=== PATIENT | male | born 1970 | race American Indian/Alaskan Native ===

== ENCOUNTER 2017-07-22 23:39 | Emergency (ER) | payer MEDICAID, OTHER ==
[2017-07-22] MEDS ORDERED: Albuterol 6.7 GM Inhaler INH ONE (23:40)
[2017-07-22 23:48] VITALS: BP 127/81
[2017-07-23] MEDS ORDERED: predniSONE 20 MG Tab PO ONE (00:32)
[2017-07-23] MEDS ORDERED: Albuterol 0.083% 2.5 MG/3 ML Neb Soln NEB ONE (00:33)
[2017-07-23] MEDS ORDERED: Albuterol 6.7 GM Inhaler INH ONE (01:09)
--- NOTE | 2017-07-23 01:17 | EDM.PDOC ---
ED HPI GENERAL MEDICAL PROBLEM - General Chief Complaint: Respiratory Problem Stated Complaint: TROUBLE BREATHING Time Seen by Provider: 07/23/17 00:15 Source of Information: Reports: Patient History Limitations: Reports: No Limitations - History of Present Illness INITIAL COMMENTS - FREE TEXT/NARRATIVE: C/o cough and chest tightness for 2 weeks after attending [employer] and in dust. Cough productive at times green phlegm. No fever or chills. Smoker Associated Symptoms: Reports: Cough, Other (wheezing) Treatments INSOLE ROUNDER: Reports: Other Medication(s) - Related Data Allergies Allergy/AdvReac Type Severity Reaction Status Date / Time No Known Allergies Allergy Verified 12/09/16 16:52 Home Meds: Home Meds Aspirin [Aspirin EC] 81 mg PO DAILY 10/23/16 [History] PHENobarbital [PHENobarbital] 64.8 mg PO DAILY 10/23/16 [History] Phenytoin Sodium Extended [Dilantin] 100 mg PO DAILY 10/23/16 [History] Lisinopril [Lisinopril] 10 mg PO DAILY 12/09/16 [History] Past Medical History - Past Health History Medical/Surgical History: Denies Medical/Surgical History Cardiovascular History: Reports: Hypertension Musculoskeletal History: Reports: Back Pain, Chronic Neurological History: Reports: Seizure Social & Family History - Family History Family Medical History: Noncontributory - Tobacco Use Smoking Status *Q: Current Every Day Smoker Years of Tobacco use: 31 Packs/Tins Daily: 0.5 Used Tobacco, but Quit: No Second Hand Smoke Exposure: Yes - Caffeine Use Caffeine Use: Reports: Coffee - Recreational Drug Use Recreational Drug Use: No - Living Situation & Occupation Living situation: Reports: , with Family ED ROS GENERAL - Review of Systems Review Of Systems: ROS reveals no pertinent complaints other than HPI. ED EXAM, GENERAL - Physical Exam Exam: See Below Exam Limited By: No Limitations General Appearance: Alert, No Apparent Distress Eye Exam: Bilateral Eye: EOMI Ears: Normal External Exam, Normal TMs Nose: Normal Inspection Throat/Mouth: Normal Inspection Head: Atraumatic, Normocephalic Neck: Normal Inspection, Full Range of Motion. No: Lymphadenopathy (L), Lymphadenopathy (R) Respiratory/Chest: No Respiratory Distress, Wheezing (bilateral) Cardiovascular: Normal Peripheral Pulses, Regular Rate, Rhythm Extremities: Normal Inspection, Normal Range of Motion Neurological: Alert, Oriented, Normal Cognition Psychiatric: Normal Affect, Normal Mood Skin Exam: Warm, Dry, Intact, Normal Color Course - Vital Signs Last Recorded V/S: Last Vital Signs Temp 97.6 F 07/22/17 23:47 Pulse 79 07/22/17 23:47 Resp 20 07/22/17 23:47 BP 127/81 07/22/17 23:47 Pulse Ox 96 07/22/17 23:47 - Orders/Labs/Meds Orders: Active Orders 24 hr Category Date Time Status RT Aerosol Therapy [RC] ASDIRECTED Care 07/23/17 00:33 Active Meds: Medications Discontinued Medications Generic Name Dose Route Start Last Admin Trade Name Freq PRN Reason Stop Dose Admin Albuterol 2.5 mg 07/23/17 00:33 07/23/17 00:38 Proventil Neb Soln NEB 07/23/17 00:34 2.5 mg ONETIME ONE Administration Albuterol Confirm 07/23/17 01:09 Proventil Hfa Administered 07/23/17 01:10 Dose 6.7 gm INH .STK-MED ONE Prednisone 20 mg 07/23/17 00:32 07/23/17 00:38 Prednisone PO 07/23/17 00:33 20 mg ONETIME ONE Administration - Radiology Interpretation Free Text/Narrative:: CXR clear - Re-Assessments/Exams Free Text/Narrative Re-Assessment/Exam: 07/23/17 01:21 Lungs clear following albuterol nebulizer. Departure - Departure Time of Disposition: 01:06 Disposition: Home, Self-Care 01 Condition: Good Clinical Impression: Upper respiratory infection Qualifiers: URI type: unspecified viral URI Qualified Code(s): J06.9 - Acute upper respiratory infection, unspecified Reactive airway disease Qualifiers: Asthma severity: unspecified severity Asthma complication type: uncomplicated Qualified Code(s): J45.909 - Unspecified asthma, uncomplicated - Discharge Information Instructions: Upper Respiratory Infection, Adult, [id number] Forms: ED Department Discharge Additional Instructions: prednisone 20mg daily for 3 days then 10mg daily for 3 days albuterol inhaler 2 puffs every 4 hours as needed for cough and wheezing follow up as needed - My Orders Last 24 Hours: My Active Orders 07/23/17 00:33 RT Aerosol Therapy [RC] ASDIRECTED - Assessment/Plan Last 24 Hours: My Active Orders 07/23/17 00:33 RT Aerosol Therapy [RC] ASDIRECTED
== END 2017-07-23 01:18 | disposition home or self-care (01) ==
LOC: DL.ED 23:39
DX: J06.9 Acute upper respiratory infection, unspecified (principal); J45.909 Unspecified asthma, uncomplicated; F17.210 Nicotine dependence, cigarettes, uncomplicated; I10 Essential (primary) hypertension; Z79.82 Long term (current) use of aspirin; Z79.899 Other long term (current) drug therapy
CPT/HCPCS: 71020; 94640; 99283; A9270; J7620

== ENCOUNTER 2018-11-11 11:05 | Emergency (ER) | payer OTHER ==
--- NOTE | 2018-11-11 11:10 | EDM.PDOC ---
ED HPI GENERAL MEDICAL PROBLEM - General Chief Complaint: Respiratory Problem Stated Complaint: COUGHING UP BLOOD [id number] Time Seen by Provider: 11/11/18 11:09 Source of Information: Reports: Patient, RN, RN Notes Reviewed History Limitations: Reports: No Limitations - History of Present Illness INITIAL COMMENTS - FREE TEXT/NARRATIVE: Pt presents to ER from home by POV with c/o 3 days of recurring hemoptysis. Pt admits to some aching pain in the chest. Denies cough, wheezing, shortness of breath, epistaxis, sore throat, night sweats, abdominal pain, N/V, bloody, black , or melanotic stools, or unexplained wt loss. Pt state that a few times an hour he simply coughs up some darkish blood with small clots. Duration: Day(s): (3), Intermittent, Recurring Location: Reports: Chest Quality: Reports: Ache Severity: Moderate Improves with: Reports: None Worsens with: Reports: None Associated Symptoms: Reports: No Other Symptoms - Related Data Allergies Allergy/AdvReac Type Severity Reaction Status Date / Time No Known Allergies Allergy Verified 11/11/18 11:17 Home Meds: Home Meds Aspirin [Aspirin EC] 81 mg PO DAILY 10/23/16 [History] PHENobarbital 64.8 mg PO DAILY 10/23/16 [History] Phenytoin Sodium Extended [Dilantin] 100 mg PO DAILY 10/23/16 [History] Lisinopril 10 mg PO DAILY 12/09/16 [History] Past Medical History - Past Health History Medical/Surgical History: Denies Medical/Surgical History HEENT History: Reports: None Cardiovascular History: Reports: Hypertension Respiratory History: Reports: None Gastrointestinal History: Reports: None Genitourinary History: Reports: None Musculoskeletal History: Reports: Back Pain, Chronic Neurological History: Reports: Seizure Psychiatric History: Reports: None Endocrine/Metabolic History: Reports: None Hematologic History: Reports: None Immunologic History: Reports: None Oncologic (Cancer) History: Reports: None Dermatologic History: Reports: None - Past Surgical History Head Surgeries/Procedures: Reports: None Social & Family History - Family History Family Medical History: Noncontributory - Tobacco Use Smoking Status *Q: Current Every Day Smoker Tobacco Use Within Last Twelve Months: Cigarettes Years of Tobacco use: 32 - Caffeine Use Caffeine Use: Reports: Coffee, Soda - Living Situation & Occupation Living situation: Reports: , with Family ED ROS GENERAL - Review of Systems Review Of Systems: ROS reveals no pertinent complaints other than HPI. ED EXAM, GENERAL - Physical Exam Exam: See Below Exam Limited By: No Limitations General Appearance: Alert, WD/WN, No Apparent Distress Eye Exam: Bilateral Eye: Normal Inspection Ears: Normal External Exam, Hearing Grossly Normal Nose: Normal Inspection, Normal Mucosa, No Blood Throat/Mouth: Normal Inspection, Normal Lips, Normal Teeth, Normal Gums, Normal Oropharynx, Normal Voice, No Airway Compromise Head: Atraumatic, Normocephalic Neck: Normal Inspection, Supple, Non-Tender, Full Range of Motion. No: Lymphadenopathy (L), Lymphadenopathy (R) Respiratory/Chest: No Respiratory Distress, Lungs Clear, Normal Breath Sounds, No Accessory Muscle Use, Chest Non-Tender Cardiovascular: Normal Peripheral Pulses, Regular Rate, Rhythm, No Edema, No Gallop, No JVD, No Murmur, No Rub GI/Abdominal: Normal Bowel Sounds, Soft, Non-Tender, No Organomegaly, No Distention, No Abnormal Bruit, No Mass (Male) Exam: Deferred Rectal (Males) Exam: Deferred Back Exam: Normal Inspection, Full Range of Motion. No: CVA Tenderness (L), CVA Tenderness (R) Extremities: Normal Inspection, Normal Range of Motion, Non-Tender, Normal Capillary Refill, No Pedal Edema Neurological: Alert, Oriented, CN II-XII Intact, Normal Cognition, Normal Gait, No Motor/Sensory Deficits Psychiatric: Normal Affect, Normal Mood Skin Exam: Warm, Dry, Intact, Normal Color, No Rash Course - Vital Signs Last Recorded V/S: Last Vital Signs Temp 36.9 C 11/11/18 11:15 Pulse 60 11/11/18 11:15 Resp 16 11/11/18 11:15 BP 145/85 H 11/11/18 11:15 Pulse Ox 98 11/11/18 11:15 - Orders/Labs/Meds Orders: Active Orders 24 hr Category Date Time Status Peripheral IV Care [RC] . DIRECTED Care 11/11/18 11:17 Active Chest w Cont [CT] Stat Exams 11/11/18 11:56 Taken CULTURE SPUTUM + SMEAR [RM] Stat Lab 11/11/18 11:40 Results Sodium Chloride 0.9% [Saline Flush] Med 11/11/18 11:17 Active 10 ml FLUSH ASDIRECTED PRN Peripheral IV Insertion Adult [OM.PC] Stat Oth 11/11/18 11:16 Ordered Medication Orders Sodium Chloride (Saline Flush) 10 ml FLUSH ASDIRECTED PRN PRN Reason: Keep Vein Open Last Admin: 11/11/18 11:26 Dose: 10 ml Labs: Laboratory Tests 11/11/18 11/11/18 11/11/18 Range/Units 11:25 11:25 11:25 WBC 9.3 (5.0-10.0) 10^3/uL RBC 4.81 (4.6-6.2) 10^6/uL Hgb 15.4 (14.0-18.0) g/dL Hct 44.6 (40.0-54.0) % MCV 92.7 (80-100) fL MCH 32.0 (27.0-34.0) pg MCHC 34.5 (33.0-35.0) g/dL Plt Count 315 (150-450) 10^3/uL Neut % (Auto) 71.6 (42.2-75.2) % Lymph % (Auto) 15.2 L (20.5-50.1) % Hodgeman % (Auto) 8.4 H (2-8) % Eos % (Auto) 4.4 H (1.0-3.0) % Baso % (Auto) 0.4 (0.0-1.0) % PT 10.3 (9.0-12.0) SEC INR 1.0 (0.9-1.2) APTT 27.0 (22.0-34.0) SEC Sodium 136 (135-145) mmol/L Potassium 4.1 (3.6-5.0) mmol/L Chloride 102 (101-111) mmol/L Carbon Dioxide 25.0 (21.0-31.0) mmol/L Anion Gap 13.1 BUN 9 (7-18) mg/dL Creatinine 0.6 (0.6-1.3) mg/dL Est Cr Clr Drug Dosing 147.29 mL/min Estimated GFR (MDRD) > 60 BUN/Creatinine Ratio 15.00 Glucose 105 (74-105) mg/dL Calcium 8.7 (8.4-10.2) mg/dl Total Bilirubin 0.5 (0.2-1.0) mg/dL AST 17 (10-42) IU/L ALT 18 (10-60) IU/L Alkaline Phosphatase 94 (42-121) IU/L Lactate Dehydrogenase 102 (91-180) IU/L Total Protein 6.9 (6.7-8.2) g/dl Albumin 3.9 (3.2-5.5) g/dl Globulin 3.0 Albumin/Globulin Ratio 1.30 Urine Color (YELLOW) Urine Appearance (CLEAR) Urine pH (5.0-9.0) Ur Specific [place] (1.005-1.030) Urine Protein (NEGATIVE) Urine Glucose (UA) (NEGATIVE) Urine Ketones (NEGATIVE) Urine Occult Blood (NEGATIVE) Urine Nitrite (NEGATIVE) Urine Bilirubin (NEGATIVE) Urine Urobilinogen (0.2-1.0) mg/dL Ur Leukocyte Esterase (NEGATIVE) 11/11/18 Range/Units 11:34 WBC (5.0-10.0) 10^3/uL RBC (4.6-6.2) 10^6/uL Hgb (14.0-18.0) g/dL Hct (40.0-54.0) % MCV (80-100) fL MCH (27.0-34.0) pg MCHC (33.0-35.0) g/dL Plt Count (150-450) 10^3/uL Neut % (Auto) (42.2-75.2) % Lymph % (Auto) (20.5-50.1) % Hodgeman % (Auto) (2-8) % Eos % (Auto) (1.0-3.0) % Baso % (Auto) (0.0-1.0) % PT (9.0-12.0) SEC INR (0.9-1.2) APTT (22.0-34.0) SEC Sodium (135-145) mmol/L Potassium (3.6-5.0) mmol/L Chloride (101-111) mmol/L Carbon Dioxide (21.0-31.0) mmol/L Anion Gap BUN (7-18) mg/dL Creatinine (0.6-1.3) mg/dL Est Cr Clr Drug Dosing mL/min Estimated GFR (MDRD) BUN/Creatinine Ratio Glucose (74-105) mg/dL Calcium (8.4-10.2) mg/dl Total Bilirubin (0.2-1.0) mg/dL AST (10-42) IU/L ALT (10-60) IU/L Alkaline Phosphatase (42-121) IU/L Lactate Dehydrogenase (91-180) IU/L Total Protein (6.7-8.2) g/dl Albumin (3.2-5.5) g/dl Globulin Albumin/Globulin Ratio Urine Color Yellow (YELLOW) Urine Appearance Clear (CLEAR) Urine pH 6.5 (5.0-9.0) Ur Specific [place] 1.010 (1.005-1.030) Urine Protein Negative (NEGATIVE) Urine Glucose (UA) Negative (NEGATIVE) Urine Ketones Negative (NEGATIVE) Urine Occult Blood Negative (NEGATIVE) Urine Nitrite Negative (NEGATIVE) Urine Bilirubin Negative (NEGATIVE) Urine Urobilinogen 0.2 (0.2-1.0) mg/dL Ur Leukocyte Esterase Negative (NEGATIVE) Meds: Medications Generic Name Dose Route Start Last Admin Trade Name Freq PRN Reason Stop Dose Admin Sodium Chloride 10 ml 11/11/18 11:17 11/11/18 11:26 Saline Flush FLUSH 10 ml ASDIRECTED PRN Administration Keep Vein Open Discontinued Medications Generic Name Dose Route Start Last Admin Trade Name Freq PRN Reason Stop Dose Admin Ceftriaxone Sodium 1 gm 11/11/18 13:03 Rocephin IVPUSH 11/11/18 13:04 ONETIME ONE Iopamidol 100 ml 11/11/18 11:55 11/11/18 12:15 Isovue-370 (76%) IVPUSH 11/11/18 11:56 75 ml ONETIME ONE Administration - Radiology Interpretation Free Text/Narrative:: Chest XR: no acute process, see Rad. report. Departure - Departure Time of Disposition: 13:07 Disposition: Home, Self-Care 01 Condition: Good Clinical Impression: Hemoptysis - Discharge Information *PRESCRIPTION DRUG MONITORING PROGRAM REVIEWED*: Not Applicable *COPY OF PRESCRIPTION DRUG MONITORING REPORT IN PATIENT MELVI: Not Applicable Instructions: Hemoptysis, [id number], Steps to Quit Smoking, [id number] Forms: ED Department Discharge Additional Instructions: Rx: Zithromax 500mg Follow up in clinic with your doctor in 3 days. Return to ER if worse at any time. - My Orders Last 24 Hours: My Active Orders 11/11/18 11:16 Peripheral IV Insertion Adult [OM.PC] Stat 11/11/18 11:17 Peripheral IV Care [RC] . DIRECTED Sodium Chloride 0.9% [Saline Flush] 10 ml FLUSH ASDIRECTED PRN 11/11/18 11:40 CULTURE SPUTUM + SMEAR [RM] Stat 11/11/18 11:56 Chest w Cont [CT] Stat - Assessment/Plan Last 24 Hours: My Active Orders 11/11/18 11:16 Peripheral IV Insertion Adult [OM.PC] Stat 11/11/18 11:17 Peripheral IV Care [RC] . DIRECTED Sodium Chloride 0.9% [Saline Flush] 10 ml FLUSH ASDIRECTED PRN 11/11/18 11:40 CULTURE SPUTUM + SMEAR [RM] Stat 11/11/18 11:56 Chest w Cont [CT] Stat
[2018-11-11 11:17] VITALS: BP 145/85
[2018-11-11] MEDS ORDERED: Sodium Chloride 0.9% 10 ML Syringe FLUSH PRN (11:17)
--- NOTE | 2018-11-11 11:49 | CR ---
Clinical history: 48-year-old male emergency department with hemoptysis. Interpretation: Generalized coarse accentuation of the bronchovascular markings with subtle peribronchial "cuffing" (smoker?) but without focal lobar pneumonia or air trapping. Normal cardiac silhouette without cephalization of vascular flow, signs of alveolar edema or dependent pleural fluid accumulation. No new lung mass or hilar lymphadenopathy when compared directly to 22 July 2017 exam.
[2018-11-11 11:51] LABS: ANION GAP 13.1; CHLORIDE,CL 102 mmol/L (101-111); SODIUM,NA 136 mmol/L (135-145)
[2018-11-11] MEDS ORDERED: Iopamidol 755 Mg/ML 100 ML Bottle IVPUSH ONE (11:55)
[2018-11-11] MEDS ORDERED: cefTRIAXone 1 GM Vial IVPUSH ONE (13:03)
--- NOTE | 2018-11-11 13:09 | CT ---
Clinical history: 48 year-old hypertensive afebrile 210 pound male smoker complaining of 3 days hemoptysis ("chunks"). No URI and plain film exam reveals some "bronchitic changes" but otherwise unremarkable. Rule out pulmonary embolism. Scan technique: Volume acquisition of data from the chest (bony thorax, lungs and mediastinum) obtained during the intravenous administration 75 cc nonionic Isovue 370 contrast (5 cc/s via injector) while patient was lying supine on the Siemens multi slice CT scanner [place], [place]. All data archived in the PACS system for storage, reformatting axial/sagittal/coronal planes and study (lung/mediastinal windows). Interpretation: 1. No sign of tracheal or proximal (major) endobronchial mass lesion i.e. airway appears clear. 2. No parenchymal lung nodule or mass lesion and no signs of hilar or mediastinal lymphadenopathy. 3. Normal cardiac silhouette. No pericardial effusion. No cephalization of vascular flow, signs of alveolar edema, or pleural effusion. 4. Peribronchial "cuffing" characteristic of chronic smoker or asthmatic. No air trapping. No focal lobar pneumonia or collapse. 5. Normal caliber thoracic aorta. Chronic hypertrophic spondylosis dorsal spine. 6. Gallbladder, liver, stomach, spleen (tiny accessory spleen), pancreas, and adrenal glands unremarkable. 7. No sign of intraluminal filling defect or thrombus pulmonary artery circulation; no focal lobar oligemia or pleural-based infarcts. CONCLUSION: No evidence of pulmonary embolism/infarct, lung malignancy or lobar pneumonia. Bronchitis.
== END 2018-11-11 13:23 | disposition home or self-care (01) ==
LOC: DL.ED 11:05
DX: R04.2 Hemoptysis (principal); I10 Essential (primary) hypertension; F17.210 Nicotine dependence, cigarettes, uncomplicated; Z79.82 Long term (current) use of aspirin; Z79.899 Other long term (current) drug therapy
CPT/HCPCS: 36415; 71046; 71260; 80053; 81003; 83615; 85025; 85610; 85730; 87070; 87205; 96374; 99285; J0696; Q9967

== ENCOUNTER 2019-06-26 17:40 | Emergency (ER) | payer MEDICAID, OTHER ==
[2019-06-26 17:51] VITALS: BP 116/79
[2019-06-26] MEDS ORDERED: Lidocaine 1% 30 ML SDV INJECT ONE (18:00)
--- NOTE | 2019-06-26 18:30 | EDM.PDOC ---
ED HPI GENERAL MEDICAL PROBLEM - General Chief Complaint: Skin Complaint Stated Complaint: NECK IS HURTING Time Seen by Provider: 06/26/19 18:00 Source of Information: Reports: Patient History Limitations: Reports: No Limitations - History of Present Illness INITIAL COMMENTS - FREE TEXT/NARRATIVE: This 48 yo male patient reports to the ED with an abscess on the back of his neck. The patient reports it has been getting bigger over the past 3 days. Duration: Day(s):, Constant, Getting Worse Location: Reports: Neck (Posterior) Severity: Moderate Improves with: Reports: None Worsens with: Reports: None Context: Reports: Other Associated Symptoms: Reports: No Other Symptoms Right Neck Pain Score (Numeric/FACES): 6 - Related Data Allergies Allergy/AdvReac Type Severity Reaction Status Date / Time No Known Allergies Allergy Verified 06/26/19 17:50 Home Meds: Home Meds Aspirin [Aspirin EC] 81 mg PO DAILY 10/23/16 [History] PHENobarbital 64.8 mg PO DAILY 10/23/16 [History] Phenytoin Sodium Extended [Dilantin] 100 mg PO DAILY 10/23/16 [History] Lisinopril 10 mg PO DAILY 12/09/16 [History] Past Medical History - Past Health History Medical/Surgical History: Denies Medical/Surgical History HEENT History: Reports: None Cardiovascular History: Reports: Hypertension Respiratory History: Reports: None Gastrointestinal History: Reports: None Genitourinary History: Reports: None Musculoskeletal History: Reports: Back Pain, Chronic Neurological History: Reports: Seizure Psychiatric History: Reports: None Endocrine/Metabolic History: Reports: None Hematologic History: Reports: None Immunologic History: Reports: None Oncologic (Cancer) History: Reports: None Dermatologic History: Reports: None - Past Surgical History Head Surgeries/Procedures: Reports: None Social & Family History - Family History Family Medical History: Noncontributory - Tobacco Use Smoking Status *Q: Current Every Day Smoker Years of Tobacco use: 35 Packs/Tins Daily: 0.5 - Caffeine Use Caffeine Use: Reports: Coffee, Soda - Living Situation & Occupation Living situation: Reports: , with Family ED ROS GENERAL - Review of Systems Review Of Systems: ROS reveals no pertinent complaints other than HPI. ED EXAM, SKIN/RASH Exam: See Below Exam Limited By: No Limitations General Appearance: Alert, WD/WN, Moderate Distress Eye Exam: Bilateral Eye: EOMI, Normal Inspection, PERRL Ears: Normal External Exam, Normal Canal, Hearing Grossly Normal, Normal TMs Nose: Normal Inspection, Normal Mucosa, No Blood Throat/Mouth: Normal Inspection, Normal Lips, Normal Teeth, Normal Gums, Normal Oropharynx, Normal Voice, No Airway Compromise Head: Atraumatic, Normocephalic Neck: Other Respiratory/Chest: No Respiratory Distress, Lungs Clear, Normal Breath Sounds, No Accessory Muscle Use, Chest Non-Tender Cardiovascular: Normal Peripheral Pulses, Regular Rate, Rhythm, No Edema, No Gallop, No JVD, No Murmur, No Rub GI/Abdominal: Normal Bowel Sounds, Soft, Non-Tender, No Organomegaly, No Distention, No Abnormal Bruit, No Mass (Male) Exam: Deferred Rectal (Males) Exam: Deferred Back Exam: Normal Inspection, Full Range of Motion, NT Neurological: Alert, Oriented, CN II-XII Intact, Normal Cognition, Normal Gait, Normal Reflexes, No Motor/Sensory Deficits Psychiatric: Normal Affect, Normal Mood Location, Skin: Neck Associated features: Warmth, Tenderness, Swelling, Induration Lymphatic: No Adenopathy ED SKIN PROCEDURES - I&D Site: posterior neck Skin Prep: Providone-Iodine (Betadine), Isopropyl Alcohol (Alcohol) Local Anesthesia: Lidocaine: 1% Plain Local Anesthetic Volume: 2cc Area Incised With: 15 Blade Drainage: Purulent, Bloody, Moderate Amount Probed to Break Up Loculations: Yes Packed With: None Sterile Dressing: Adhesive Dressing Complications: No Course - Vital Signs Last Recorded V/S: Last Vital Signs Temp 36.9 C 06/26/19 17:42 Pulse 71 06/26/19 17:42 Resp 16 06/26/19 17:42 BP 116/79 06/26/19 17:42 Pulse Ox 97 06/26/19 17:42 - Orders/Labs/Meds Orders: Active Orders 24 hr Category Date Time Status CULTURE WOUND [RM] Stat Lab 06/26/19 18:26 Ordered Meds: Medications Discontinued Medications Generic Name Dose Route Start Last Admin Trade Name Nathalia PRN Reason Stop Dose Admin Lidocaine HCl 30 ml 06/26/19 18:00 06/26/19 18:06 Xylocaine-Mpf 1% INJECT 06/26/19 18:01 30 ml ONETIME ONE Administration Departure - Departure Time of Disposition: 18:27 Disposition: Home, Self-Care 01 Clinical Impression: Abscess of neck - Discharge Information *PRESCRIPTION DRUG MONITORING PROGRAM REVIEWED*: Not Applicable *COPY OF PRESCRIPTION DRUG MONITORING REPORT IN PATIENT MELVI: Not Applicable Instructions: Skin Abscess, [id number] Forms: ED Department Discharge Care Plan Goals: The patient was advised of the examination results during the visit. The patient 's abscess was incised and drained during the visit. The patient was discharged with a script for Clindamycin (300 mg) to take 1 by mouth 3 times per day for 10 days. If the patient has any additional symptoms or concerns, the patient should either return to the emergency department or visit her primary care facility. - My Orders Last 24 Hours: My Active Orders 06/26/19 18:26 CULTURE WOUND [RM] Stat - Assessment/Plan Last 24 Hours: My Active Orders 06/26/19 18:26 CULTURE WOUND [RM] Stat
== END 2019-06-26 18:38 | disposition home or self-care (01) ==
LOC: DL.ED 17:40
DX: L02.11 Cutaneous abscess of neck (principal)
CPT/HCPCS: 10060; 87070; 99283; J2001; 87077; 87186

== ENCOUNTER 2020-01-31 16:52 | Emergency (ER) | payer MEDICAID, OTHER ==
[2020-01-31 17:24] VITALS: BP 120/75; PULSE 74
--- NOTE | 2020-01-31 18:11 | EDM.PDOC ---
<Denice Spangler - Last Filed: 01/31/20 18:11> ED HPI GENERAL MEDICAL PROBLEM - General Chief Complaint: Skin Complaint Stated Complaint: BOIL UNDER ARM Time Seen by Provider: 01/31/20 18:11 Source of Information: Reports: Patient, RN, RN Notes Reviewed History Limitations: Reports: No Limitations Right Axillary Pain Score (Numeric/FACES): 7 - Related Data Allergies Allergy/AdvReac Type Severity Reaction Status Date / Time No Known Allergies Allergy Verified 01/31/20 17:24 Home Meds: Home Meds Aspirin [Aspirin EC] 81 mg PO DAILY 10/23/16 [History] PHENobarbitaL [PHENobarbital] 64.8 mg PO BID 10/23/16 [History] Phenytoin Sodium Extended [Dilantin] 100 mg PO BID 10/23/16 [History] Lisinopril 10 mg PO DAILY 12/09/16 [History] Past Medical History - Past Health History Medical/Surgical History: Denies Medical/Surgical History HEENT History: Reports: None Cardiovascular History: Reports: Hypertension Respiratory History: Reports: None Gastrointestinal History: Reports: None Genitourinary History: Reports: None Musculoskeletal History: Reports: Back Pain, Chronic Neurological History: Reports: Seizure Psychiatric History: Reports: None Endocrine/Metabolic History: Reports: None Hematologic History: Reports: None Immunologic History: Reports: None Oncologic (Cancer) History: Reports: None Dermatologic History: Reports: None - Infectious Disease History Infectious Disease History: Reports: None - Past Surgical History Head Surgeries/Procedures: Reports: None Social & Family History - Family History Family Medical History: Noncontributory - Tobacco Use Smoking Status *Q: Current Every Day Smoker Years of Tobacco use: 25 Packs/Tins Daily: 0.5 Second Hand Smoke Exposure: No - Caffeine Use Caffeine Use: Reports: Coffee - Recreational Drug Use Recreational Drug Use: No - Living Situation & Occupation Living situation: Reports: , with Family Course - Vital Signs Last Recorded V/S: Last Vital Signs Temp 36.6 C 01/31/20 17:20 Pulse 74 01/31/20 17:20 Resp 16 01/31/20 17:20 BP 120/75 01/31/20 17:20 Pulse Ox 96 01/31/20 17:20 - Orders/Labs/Meds Meds: Medications Discontinued Medications Generic Name Dose Route Start Last Admin Trade Name Freq PRN Reason Stop Dose Admin Cephalexin 500 mg 01/31/20 18:21 01/31/20 18:27 Keflex PO 01/31/20 18:22 500 mg ONETIME ONE Administration Lidocaine HCl 30 ml 01/31/20 18:20 01/31/20 18:27 Xylocaine-Mpf 1% INJECT 01/31/20 18:21 30 ml ONETIME ONE Administration Mupirocin 1 gm 01/31/20 18:24 01/31/20 18:28 Bactroban Oint TOP 01/31/20 18:25 1 gm ONETIME ONE Administration Trimethoprim/Sulfamethoxazole 1 tab 01/31/20 18:21 01/31/20 18:27 Septra Ds PO 01/31/20 18:22 1 tab ONETIME ONE Administration Departure - Departure Disposition: Home, Self-Care 01 Clinical Impression: Abscess - Discharge Information Instructions: Skin Abscess, [id number] Forms: ED Department Discharge Additional Instructions: 1) keep wound clean dry covered 2) see clinic tomorrow for packing removal. rx given; clindamycin 300mg qid x 40 vicodin 5/325mg bid prn x 6 Sepsis Event Note - Evaluation Sepsis Screening Result: No Definite Risk - Focused Exam Vital Signs: Vital Signs Temp Pulse Resp BP Pulse Ox 01/31/20 17:20 36.6 C 74 16 120/75 96 Date Exam was Performed: 01/31/20 Time Exam was Performed: 18:11 <Robert Doty - Last Filed: 01/31/20 19:20> ED HPI GENERAL MEDICAL PROBLEM - History of Present Illness INITIAL COMMENTS - FREE TEXT/NARRATIVE: 1 week h/o worsening right arm abscess ED ROS GENERAL - Review of Systems Review Of Systems: Comprehensive ROS is negative, except as noted in HPI. ED EXAM, SKIN/RASH Exam: See Below Exam Limited By: No Limitations General Appearance: Alert, WD/WN, Mild Distress, Other (discomfort) Ears: Hearing Grossly Normal Throat/Mouth: Normal Voice, No Airway Compromise Head: Atraumatic Neck: Non-Tender, Full Range of Motion Respiratory/Chest: No Respiratory Distress Cardiovascular: Regular Rate, Rhythm GI/Abdominal: Soft, Non-Tender Extremities: Other (right arm abscess) Neurological: Alert, Oriented, Normal Cognition, Normal Gait, No Motor/Sensory Deficits Psychiatric: Normal Affect, Normal Mood Skin: Warm, Dry, Normal Color Location, Skin: Upper Extremity, Right Lymphatic: No Adenopathy ED SKIN PROCEDURES - I&D Site: right arm Skin Prep: Providone-Iodine (Betadine) Local Anesthesia: Lidocaine: Other (biofreeze) Area Incised With: 15 Blade Drainage: Purulent, Bloody, Small Amount Probed to Break Up Loculations: Yes Packed With: 1/4 in. Iodoform Sterile Dressing: Adhesive Dressing Complications: No Departure - Departure Time of Disposition: 19:19 Condition: Good Sepsis Event Note - Focused Exam Date Exam was Performed: 01/31/20 Time Exam was Performed: 19:11
[2020-01-31] MEDS ORDERED: Lidocaine 1% 30 ML SDV INJECT ONE (18:20)
[2020-01-31] MEDS ORDERED: Cephalexin 500 MG Cap PO ONE (18:21)
[2020-01-31] MEDS ORDERED: Sulfamethoxazole/Trimethoprim 800-160 MG Tab PO ONE (18:21)
[2020-01-31] MEDS ORDERED: Mupirocin Oint 22 GM Tube TOP ONE (18:24)
[2020-01-31] MEDS ORDERED: Clindamycin HCl 150 MG Cap PO ONE (19:12)
[2020-01-31] MEDS ORDERED: Acetaminophen/HYDROcodone 325-10 MG Tab PO ONE (19:12)
== END 2020-01-31 19:28 | disposition home or self-care (01) ==
LOC: DL.ED 16:52
DX: L02.411 Cutaneous abscess of right axilla (principal); I10 Essential (primary) hypertension; F17.210 Nicotine dependence, cigarettes, uncomplicated; R56.9 Unspecified convulsions; Z79.82 Long term (current) use of aspirin; Z79.899 Other long term (current) drug therapy
CPT/HCPCS: 10060; 87070; 87077; 87186; 99283; A9270; J2001

== ENCOUNTER 2020-06-06 16:40 | Emergency (ER) | payer MEDICAID ==
[2020-06-06] MEDS ORDERED: Aspirin 81 MG Tab.Chew PO ONE (16:50)
[2020-06-06] MEDS ORDERED: Sodium Chloride 0.9% 10 ML Syringe FLUSH PRN (16:50)
[2020-06-06 17:36] LABS: ANION GAP 9.8 mEq/L (7-13); CHLORIDE,CL 101 mmol/L (98-107); SODIUM,NA 135 mmol/L (136-145)
[2020-06-06] MEDS ORDERED: Heparin Sodium 5,000 Units/ML Vial IVPUSH ONE (17:42)
[2020-06-06] MEDS ORDERED: Heparin Sodium/0.45% NaCl 25,000 UNITS/500 ML BAG IV SCH (17:45)
[2020-06-06 17:53] VITALS: BP 103/70; PULSE 61
--- NOTE | 2020-06-06 18:01 | EDM.PDOC ---
Scribed by Laurel San 06/06/20 1800 for Edy Demarco MD ED HPI GENERAL MEDICAL PROBLEM - General Chief Complaint: Cardiovascular Problem Stated Complaint: UNK Time Seen by Provider: 06/06/20 16:43 Source of Information: Reports: Patient, EMS, EMS Notes Reviewed, RN, RN Notes Reviewed History Limitations: Reports: No Limitations - History of Present Illness INITIAL COMMENTS - FREE TEXT/NARRATIVE: Patient presents to ER from [facility] by [facility] with onset of chest pain this morning sometime between 8 A.M. and 10 A.M. The pain persisted throughout the day so he went to [facility] and given a GI cocktail with no relief. Patient took 1 baby aspirin and received nitroglycerin sublingual with partial relief. Denies cough or fever. Denies history of coronary artery disease or PR. Patient was COVID tested in clinic today and was negative. Pain was substernal, radiates to the bilateral shoulders, jaw and up to his ears. Patient rated the pain 7/10. Onset: Today Duration: Getting Worse Location: Reports: Chest Quality: Reports: Ache Severity: Severe Improves with: Reports: None Worsens with: Reports: None Associated Symptoms: Reports: No Other Symptoms - Related Data Allergies Allergy/AdvReac Type Severity Reaction Status Date / Time No Known Allergies Allergy Verified 01/31/20 17:24 Home Meds: Home Meds Aspirin [Aspirin EC] 81 mg PO DAILY 10/23/16 [History] PHENobarbitaL [PHENobarbital] 64.8 mg PO BID 10/23/16 [History] Phenytoin Sodium Extended [Dilantin] 100 mg PO BID 10/23/16 [History] Lisinopril 10 mg PO DAILY 12/09/16 [History] Past Medical History - Past Health History Medical/Surgical History: Denies Medical/Surgical History HEENT History: Reports: None Cardiovascular History: Reports: High Cholesterol, Hypertension Respiratory History: Reports: None Gastrointestinal History: Reports: None Genitourinary History: Reports: None Musculoskeletal History: Reports: Back Pain, Chronic Neurological History: Reports: Seizure Psychiatric History: Reports: None Endocrine/Metabolic History: Reports: None Hematologic History: Reports: None Immunologic History: Reports: None Oncologic (Cancer) History: Reports: None Dermatologic History: Reports: None - Infectious Disease History Infectious Disease History: Reports: None - Past Surgical History Head Surgeries/Procedures: Reports: None Social & Family History - Family History Family Medical History: Noncontributory - Tobacco Use Smoking Status *Q: Current Every Day Smoker - Caffeine Use Caffeine Use: Reports: Coffee - Living Situation & Occupation Living situation: Reports: , with Family ED ROS GENERAL - Review of Systems Review Of Systems: Comprehensive ROS is negative, except as noted in HPI. ED EXAM, GENERAL - Physical Exam Exam: See Below Exam Limited By: No Limitations General Appearance: Alert, WD/WN, No Apparent Distress Eye Exam: Bilateral Eye: EOMI, Normal Inspection, PERRL Ears: Normal External Exam, Normal Canal, Hearing Grossly Normal, Normal TMs Nose: Normal Inspection, Normal Mucosa, No Blood Throat/Mouth: Normal Inspection, Normal Lips, Normal Teeth, Normal Gums, Normal Oropharynx, Normal Voice, No Airway Compromise Head: Atraumatic, Normocephalic Neck: Normal Inspection, Supple, Non-Tender, Full Range of Motion Respiratory/Chest: No Respiratory Distress, Lungs Clear, Normal Breath Sounds, No Accessory Muscle Use, Chest Non-Tender Cardiovascular: Normal Peripheral Pulses, Regular Rate, Rhythm, No Edema, No Gallop, No JVD, No Murmur, No Rub GI/Abdominal: Normal Bowel Sounds, Soft, Non-Tender, No Organomegaly, No Distention, No Abnormal Bruit, No Mass (Male) Exam: Deferred Rectal (Males) Exam: Deferred Back Exam: Normal Inspection, Full Range of Motion, NT Extremities: Normal Inspection, Normal Range of Motion, Non-Tender, Normal Capillary Refill, No Pedal Edema Neurological: Alert, Oriented, CN II-XII Intact, Normal Cognition, Normal Gait, Normal Reflexes, No Motor/Sensory Deficits Psychiatric: Normal Affect, Normal Mood Skin Exam: Warm, Dry, Intact, Normal Color, No Rash EKG INTERPRETATION EKG Date: 06/06/20 Time: 16:46 Rhythm: Other (sinus rhythm) Rate (Beats/Min): 59 [place]: Normal P-Wave: Present QRS: Other (abnormal R-wave progression, early transition.) ST-T: Depressed (in the inferior and lateral leads.) QT: Normal Comparison: NA - No Prior EKG Course - Vital Signs Last Recorded V/S: Last Vital Signs Temp 97.6 F 06/06/20 16:50 Pulse 61 06/06/20 16:50 Resp 12 06/06/20 16:50 BP 103/70 06/06/20 16:50 Pulse Ox 100 06/06/20 16:50 - Orders/Labs/Meds Orders: Active Orders 24 hr Category Date Time Status EKG 12 Lead [EKG Documentation Completion] [RC] STAT Care 06/06/20 16:50 Active Peripheral IV Care [RC] . DIRECTED Care 06/06/20 16:51 Active Chest wo Cont [CT] Stat Exams 06/06/20 17:20 Taken CULTURE BLOOD [BC] Stat Lab 06/06/20 17:00 Received CULTURE BLOOD [BC] Stat Lab 06/06/20 17:06 Received INR,PT,PROTHROMBIN TIME [COAG] Stat Lab 06/06/20 17:06 Received PTT,PARTIAL THROMBOPLSTIN TIME [COAG] Stat Lab 06/06/20 17:06 Received Heparin Sodium/0.45% NaCl [Heparin 25,000 Units in 1/2 Med 06/06/20 17:45 Ordered NS 500 ML] 25,000 units in 500 ml IV TITRATE Sodium Chloride 0.9% [Saline Flush] Med 06/06/20 16:50 Active 10 ml FLUSH ASDIRECTED PRN Blood Culture x2 Reflex Set [OM.PC] Stat Oth 06/06/20 16:50 Ordered Peripheral IV Insertion Adult [OM.PC] Stat Oth 06/06/20 16:50 Ordered Medication Orders Heparin Sodium/Sodium Chloride (Heparin 25,000 Units In 1/2 Ns 500 Ml) 25,000 units in 500 mls @ 0 mls/hr IV TITRATE RISSA; Protocol Sodium Chloride (Saline Flush) 10 ml FLUSH ASDIRECTED PRN PRN Reason: Keep Vein Open Last Admin: 06/06/20 17:39 Dose: 10 ml Documented by: RACHAEL Labs: Laboratory Tests 06/06/20 06/06/20 06/06/20 Range/Units 17:06 17:06 17:06 WBC 16.4 H (5.0-10.0) 10^3/uL RBC 4.97 (4.6-6.2) 10^6/uL Hgb 15.9 (14.0-18.0) g/dL Hct 46.5 (40.0-54.0) % MCV 93.6 (80-100) fL MCH 32.0 (27.0-34.0) pg MCHC 34.2 (33.0-35.0) g/dL Plt Count 314 (150-450) 10^3/uL Neut % (Auto) 87.8 H (42.2-75.2) % Lymph % (Auto) 4.8 L (20.5-50.1) % Elk % (Auto) 6.4 (2-8) % Eos % (Auto) 0.7 L (1.0-3.0) % Baso % (Auto) 0.3 (0.0-1.0) % Sodium 135 L (136-145) mmol/L Potassium 3.8 (3.5-5.1) mmol/L Chloride 101 (98-107) mmol/L Carbon Dioxide 28 (21-32) mmol/L Anion Gap 9.8 (7-13) mEq/L BUN 10 (7-18) mg/dL Creatinine 0.65 L (0.70-1.30) mg/dL Est Cr Clr Drug Dosing TNP Estimated GFR (MDRD) > 60 BUN/Creatinine Ratio 15.4 (No establ ref range) Glucose 108 H (74-99) mg/dL Lactic Acid 1.2 (0.4-2.0) mmol/L Calcium 8.5 (8.5-10.1) mg/dL Total Bilirubin 0.3 (0.2-1.0) mg/dL AST 108 H (15-37) U/L ALT 31 (16-63) U/L Alkaline Phosphatase 99 (46-116) U/L Troponin I 14.743 H* (0.000-0.056) ng/mL B-Natriuretic Peptide 63 (0-100) pg/ml Total Protein 7.0 (6.4-8.2) g/dL Albumin 3.7 (3.4-5.0) g/dL Globulin 3.3 Albumin/Globulin Ratio 1.1 Lipase 45 L (73-393) U/L Ethyl Alcohol < 3 (0) mg/dL Meds: Medications Generic Name Dose Route Start Last Admin Trade Name Freq PRN Reason Stop Dose Admin Heparin Sodium/Sodium Chloride 25,000 units in 500 mls @ 0 mls/hr 06/06/20 17:45 Heparin 25,000 Units In /2 Ns 500 Ml IV TITRATE RISSA Protocol 12 UNITS/KG/HR Sodium Chloride 10 ml 06/06/20 16:50 06/06/20 17:39 Saline Flush FLUSH 10 ml ASDIRECTED PRN Administration Keep Vein Open Discontinued Medications Generic Name Dose Route Start Last Admin Trade Name Obedq PRN Reason Stop Dose Admin Aspirin 324 mg 06/06/20 16:50 06/06/20 17:39 Aspirin PO 06/06/20 16:51 324 mg ONETIME ONE Administration Heparin Sodium (Porcine) 4,000 units 06/06/20 17:42 06/06/20 17:54 Heparin Sodium IVPUSH 06/06/20 17:43 4,000 units .BOLUS ONE Administration - Radiology Interpretation Free Text/Narrative:: Chest CT: report pending, image pushed to [employer]'s PACs system. - Re-Assessments/Exams Free Text/Narrative Re-Assessment/Exam: Chest x-ray from [facility]: There are 2 tongues of tissue extending out from the hilar structures. Computed tomography of the chest with contrast is recommended to evaluate these further. That would need to include contrast enhancement to evaluate both the mediastinum and the relationship of the structures to the mediastinum. CBC shows WBC 15.7, RBC 4.68, hemoglobin 15.1, hematocrit 44.8, MCV 95.8, MCH 32.3, MCHC 33.7, RDW 12.4, platelet 327.0, MPV 7.4, NE% 85.1, Ly% 6.5, MO% 6.1, EO% 1.9, BA% 0.4, NE# 13.30, Ly# 1.00, MO# 1.00, EO# 0.30 and BA# 0.10. Glucose 143, BUN 9.7, creatinine 0.70, sodium 136, potassium 3.9, chloride 102, C02 25.1, calcium 8.9, albumin 4.1, total bilirubin 0.30, direct bilirubin 0.10, alkaline phosphatase 88, AST 58, SGPT 19, GFR greater than 60, protein 6.6. COVID: Negative. Departure - Departure Time of Disposition: 17:51 Disposition: DC/Tfer to Acute Hospital 02 Reason for Transfer *Q: Primary PCI Indicated Condition: Critical Clinical Impression: Non-STEMI (non-ST elevated myocardial infarction) Forms: ED Department Discharge, Interfacility Transfer EMTALA Sepsis Event Note (ED) - Focused Exam Vital Signs: Vital Signs Temp Pulse Resp BP Pulse Ox 06/06/20 16:50 97.6 F 61 12 103/70 100 - My Orders Last 24 Hours: My Active Orders 06/06/20 16:50 EKG 12 Lead [EKG Documentation Completion] [RC] STAT Sodium Chloride 0.9% [Saline Flush] 10 ml FLUSH ASDIRECTED PRN Blood Culture x2 Reflex Set [OM.PC] Stat Peripheral IV Insertion Adult [OM.PC] Stat 06/06/20 16:51 Peripheral IV Care [RC] . DIRECTED 06/06/20 17:00 CULTURE BLOOD [BC] Stat 06/06/20 17:06 CULTURE BLOOD [BC] Stat INR,PT,PROTHROMBIN TIME [COAG] Stat PTT,PARTIAL THROMBOPLSTIN TIME [COAG] Stat 06/06/20 17:20 Chest wo Cont [CT] Stat 06/06/20 17:45 Heparin Sodium/0.45% NaCl [Heparin 25,000 Units in 1/2 NS 500 ML] 25,000 units in 500 ml IV TITRATE - Assessment/Plan Last 24 Hours: My Active Orders 06/06/20 16:50 EKG 12 Lead [EKG Documentation Completion] [RC] STAT Sodium Chloride 0.9% [Saline Flush] 10 ml FLUSH ASDIRECTED PRN Blood Culture x2 Reflex Set [OM.PC] Stat Peripheral IV Insertion Adult [OM.PC] Stat 06/06/20 16:51 Peripheral IV Care [RC] . DIRECTED 06/06/20 17:00 CULTURE BLOOD [BC] Stat 06/06/20 17:06 CULTURE BLOOD [BC] Stat INR,PT,PROTHROMBIN TIME [COAG] Stat PTT,PARTIAL THROMBOPLSTIN TIME [COAG] Stat 06/06/20 17:20 Chest wo Cont [CT] Stat 06/06/20 17:45 Heparin Sodium/0.45% NaCl [Heparin 25,000 Units in 1/2 NS 500 ML] 25,000 units in 500 ml IV TITRATE I have read and agree with the documentation that has been completed regarding this visit. By signing this record, I attest that the documentation was com pleted in my physical presence and is an accurate record of the encounter.
--- NOTE | 2020-06-06 18:02 | CT ---
PROCEDURE INFORMATION: Exam: CT Chest Without Contrast Exam date and time: 06/06/2020 5:36 PM Age: 49 years old Clinical indication: Chest pain, wbc 16,000, abnormal chest XR; Patient HX: Cxr performed at another facility, not sent with copy of report. TECHNIQUE: Imaging protocol: Computed tomography of the chest without contrast. Radiation optimization: All CT scans at this facility use at least one of these dose optimization techniques: automated exposure control; mA and/or kV adjustment per patient size (includes targeted exams where dose is matched to clinical indication); or iterative reconstruction. COMPARISON: CT Chest w Cont 11/11/2018 12:05 PM FINDINGS: Lungs: Unremarkable. No consolidation. No masses. Pleural space: Unremarkable. No pneumothorax. No pleural effusion. Heart: No cardiomegaly. Coronary artery calcifications. Aorta: No thoracic aortic aneurysm. Lymph nodes: Unremarkable. No enlarged lymph nodes. Bones/joints: Unremarkable. No acute fracture. Soft tissues: Unremarkable. IMPRESSION: No pneumonia.
[2020-06-06 18:08] LABS: PTT,PARTIAL THROMBOPLSTIN TIME 23.8 SEC (22.0-34.0)
== END 2020-06-06 18:23 ==
LOC: DL.ED 16:40
DX: I21.4 Non-ST elevation (NSTEMI) myocardial infarction (principal); E78.00 Pure hypercholesterolemia, unspecified; I10 Essential (primary) hypertension; F17.200 Nicotine dependence, unspecified, uncomplicated; Z79.82 Long term (current) use of aspirin; Z79.899 Other long term (current) drug therapy
CPT/HCPCS: 36415; 71250; 80053; 80307; 83605; 83690; 83880; 84484; 85025; 85610; 85730; 87040; 93005; 96365; 99285; A9270; J1644; 93010; 99284

== ENCOUNTER 2020-06-28 02:32 | Emergency (ER) | payer MEDICAID ==
--- NOTE | 2020-06-28 02:49 | EDM.PDOC ---
ED HPI GENERAL MEDICAL PROBLEM - General Stated Complaint: TEMP 99.9*, TAKE A LOOK OVER ALL Time Seen by Provider: 06/28/20 02:49 Source of Information: Reports: Patient, RN, RN Notes Reviewed History Limitations: Reports: No Limitations - History of Present Illness INITIAL COMMENTS - FREE TEXT/NARRATIVE: Patient presents to ER with complaint of fever since yesterday, chest pain and right leg pain. Patient states he had a triple bypass on June 10. Patient states he has an ache in the right leg and pain in his chest. Patient states this is unchanged from after the surgery, denies any new or worsening pains in the chest or the leg. Patient states he did take Tylenol last evening before bed for fever. Patient states the fever has gotten up as high as 104. Admits to chills. Denies nausea or vomiting, denies diarrhea. Patient states he has not had a bowel movement in 3 days. Patient states he was on oxycodone for pain postop, and states he has ran out of those medications. Onset: Gradual Mid-Sternal Chest Pain Score (Numeric/FACES): 6 - Related Data Allergies Allergy/AdvReac Type Severity Reaction Status Date / Time No Known Allergies Allergy Verified 06/28/20 02:47 Home Meds: Home Meds Aspirin [Aspirin EC] 81 mg PO DAILY 10/23/16 [History] PHENobarbitaL [PHENobarbital] 64.8 mg PO BID 10/23/16 [History] Phenytoin Sodium Extended [Dilantin] 100 mg PO BID 10/23/16 [History] Lisinopril 10 mg PO DAILY 12/09/16 [History] Clopidogrel Bisulfate [Clopidogrel] 75 mg PO DAILY 06/28/20 [History] Metoprolol Tartrate 25 mg PO DAILY 06/28/20 [History] Past Medical History - Past Health History Medical/Surgical History: Denies Medical/Surgical History HEENT History: Reports: None Cardiovascular History: Reports: High Cholesterol, Hypertension Respiratory History: Reports: None Gastrointestinal History: Reports: None Genitourinary History: Reports: None Musculoskeletal History: Reports: Back Pain, Chronic Neurological History: Reports: Seizure Psychiatric History: Reports: None Endocrine/Metabolic History: Reports: None Hematologic History: Reports: None Immunologic History: Reports: None Oncologic (Cancer) History: Reports: None Dermatologic History: Reports: None - Infectious Disease History Infectious Disease History: Reports: None - Past Surgical History Head Surgeries/Procedures: Reports: None Social & Family History - Family History Family Medical History: Noncontributory - Caffeine Use Caffeine Use: Reports: Coffee - Living Situation & Occupation Living situation: Reports: , with Family ED ROS GENERAL - Review of Systems Review Of Systems: Comprehensive ROS is negative, except as noted in HPI. ED EXAM, SEPSIS - Physical Exam Exam: See Below Exam Limited By: No Limitations General Appearance: Alert, WD/WN, Mild Distress Eye Exam: Bilateral Eye: EOMI, Normal Inspection Ears: Normal External Exam, Hearing Grossly Normal Nose: Normal Inspection Throat/Mouth: Normal Inspection, Normal Lips, Normal Teeth, Normal Gums, Normal Oropharynx, Normal Voice, No Airway Compromise Head: Atraumatic, Normocephalic Neck: Normal Inspection, Supple, Non-Tender, Full Range of Motion Respiratory/Chest: No Respiratory Distress, Lungs Clear, No Accessory Muscle Use, Decreased Breath Sounds Cardiovascular: Normal Peripheral Pulses, Regular Rate, Rhythm, No Edema, No Gallop, No JVD, No Murmur, No Rub, Tachycardia Peripheral Pulses: 2+: Radial (L), Radial (R) GI/Abdominal Exam: Normal Bowel Sounds, Soft, Non-Tender (Male) Exam: Deferred Rectal (Males) Exam: Deferred Back: Normal Inspection, Full Range of Motion Extremities: Normal Inspection, Normal Range of Motion, Non-Tender, No Pedal Edema, Normal Capillary Refill Neurological: Alert, Oriented, CN II-XII Intact, Normal Cognition, Normal Gait, Normal Reflexes, No Motor/Sensory Deficits Psychiatric: Normal Affect, Normal Mood Skin: Warm, Dry, Wound/Incision (CABG incision down center of chest dry and clean, no erythema, no drainage; horizontal incisional site just below CABG line open, small amount of purulent drainage; incisional site to right inner calf clean, dry, intact, no erythema) Lymphatic: Bilateral: No Adenopathy Course - Vital Signs Last Recorded V/S: Last Vital Signs Temp 101.2 F H 06/28/20 03:58 Pulse 110 H 06/28/20 02:42 Resp 18 06/28/20 02:42 BP 119/82 06/28/20 02:42 Pulse Ox 98 06/28/20 02:42 - Orders/Labs/Meds Orders: Active Orders 24 hr Category Date Time Status CORONAVIRUS COVID-19 PCR PHL Stat Lab 06/28/20 03:55 Received CULTURE BLOOD [BC] Stat Lab 06/28/20 02:55 Received CULTURE BLOOD [BC] Stat Lab 06/28/20 03:27 Received UA RFX EZIO AND CULT IF INDIC [URIN] Stat Lab 06/28/20 02:50 Ordered Sodium Chloride 0.9% [Normal Saline] 1,000 ml Med 06/28/20 04:00 Active IV .BOLUS Blood Culture x2 Reflex Set [OM.PC] Stat Oth 06/28/20 02:50 Ordered Medication Orders Sodium Chloride (Normal Saline) 1,000 mls @ 999 mls/hr IV .BOLUS ONE Stop: 06/28/20 05:00 Last Admin: 06/28/20 04:02 Dose: 999 mls/hr Documented by: REINA Labs: Laboratory Tests 06/28/20 06/28/20 06/28/20 Range/Units 02:55 02:55 02:55 WBC 6.8 (5.0-10.0) 10^3/uL RBC 3.48 L (4.6-6.2) 10^6/uL Hgb 10.7 L D (14.0-18.0) g/dL Hct 33.9 L (40.0-54.0) % MCV 97.4 D (80-100) fL MCH 30.7 (27.0-34.0) pg MCHC 31.6 L (33.0-35.0) g/dL Plt Count 433 D (150-450) 10^3/uL Neut % (Auto) 64.3 (42.2-75.2) % Lymph % (Auto) 12.8 L (20.5-50.1) % [place] % (Auto) 20.7 H (2-8) % Eos % (Auto) 1.6 (1.0-3.0) % Baso % (Auto) 0.6 (0.0-1.0) % Add Manual Diff Yes Neutrophils % (Manual) 62 (42-75) % Band Neutrophils % 8 % Lymphocytes % (Manual) 10 L (20-50) % Monocytes % (Manual) 18 H (2-8) % Eosinophils % (Manual) 2 (1-3) % Sodium 139 (136-145) mmol/L Potassium 4.2 (3.5-5.1) mmol/L Chloride 103 (98-107) mmol/L Carbon Dioxide 27 (21-32) mmol/L Anion Gap 13.2 H (7-13) mEq/L BUN 14 (7-18) mg/dL Creatinine 0.99 (0.70-1.30) mg/dL Est Cr Clr Drug Dosing 88.28 mL/min Estimated GFR (MDRD) > 60 BUN/Creatinine Ratio 14.1 (No establ ref range) Glucose 90 (74-99) mg/dL Lactic Acid 0.8 (0.4-2.0) mmol/L Calcium 8.1 L (8.5-10.1) mg/dL Total Bilirubin 0.2 (0.2-1.0) mg/dL AST 15 (15-37) U/L ALT 30 (16-63) U/L Alkaline Phosphatase 116 (46-116) U/L Total Protein 6.9 (6.4-8.2) g/dL Albumin 3.2 L (3.4-5.0) g/dL Globulin 3.7 Albumin/Globulin Ratio 0.86 Meds: Medications Generic Name Dose Route Start Last Admin Trade Name Freq PRN Reason Stop Dose Admin Sodium Chloride 1,000 mls @ 999 mls/hr 06/28/20 04:00 06/28/20 04:02 Normal Saline IV 06/28/20 05:00 999 mls/hr .BOLUS ONE Administration Discontinued Medications Generic Name Dose Route Start Last Admin Trade Name Freq PRN Reason Stop Dose Admin Acetaminophen 650 mg 06/28/20 04:08 06/28/20 04:11 Tylenol PO 06/28/20 04:09 650 mg NOW ONE Administration - Radiology Interpretation Free Text/Narrative:: Chest xray: PROCEDURE INFORMATION: Exam: XR Chest, 1 View Exam date and time: 06/28/2020 3:10 AM Age: 49 years old Clinical indication: Chest pain; Prior surgery; Surgery date: <1 month; Surgery type: Triple bypass per patient TECHNIQUE: Imaging protocol: XR of the chest Views: 1 view. COMPARISON: CT Chest wo Cont 06/06/2020 5:36 PM FINDINGS: Lungs: Unremarkable. No consolidation. Pleural space: Unremarkable. No pleural effusion. No pneumothorax. Heart/Mediastinum: Unremarkable. No cardiomegaly. Bones/joints: Unremarkable. IMPRESSION: 1. No acute findings. 2. Status post open heart surgery with sternal wires noted Thank you for allowing us to participate in the care of your patient. Dictated and Authenticated by: Nitin Barrios MD 06/28/2020 3:32 AM Central Time ([place] & [place]) See rad report - Re-Assessments/Exams Free Text/Narrative Re-Assessment/Exam: 06/28/20 03:45 Labs and diagnostics discussed with the patient. Patient encouraged to use Tylenol for pain and fever. Encouraged to drink plenty of fluids, and to follow-up with his lean leader tomorrow. 06/28/20 03:46 Departure - Departure Time of Disposition: 04:50 Disposition: Home, Self-Care 01 Condition: Fair Clinical Impression: S/P CABG x 3 Fever Qualifiers: Fever type: unspecified Qualified Code(s): R50.9 - Fever, unspecified - Discharge Information *PRESCRIPTION DRUG MONITORING PROGRAM REVIEWED*: No *COPY OF PRESCRIPTION DRUG MONITORING REPORT IN PATIENT MELVI: No Instructions: Coronary Artery Bypass Grafting, Care After, [id number], Coronary Artery Bypass Grafting, [id number], Fever, Adult, [id number] Forms: ED Department Discharge Additional Instructions: Cough and deep breathe frequently Drink plenty of water Keep wounds clean and dry to allow for healing Be up and walking frequently May use Tylenol as directed for fever and pain, no more than 3000 mg/day Call your lean leader office tomorrow to follow-up Return to the ER with any worsening of symptoms Sepsis Event Note (ED) - Evaluation Sepsis Screening Result: No Definite Risk - Focused Exam Vital Signs: Vital Signs Temp Pulse Resp BP Pulse Ox 06/28/20 03:58 101.2 F H 06/28/20 02:42 100.9 F H 110 H 18 119/82 98 - My Orders Last 24 Hours: My Active Orders 06/28/20 02:50 UA RFX EZIO AND CULT IF INDIC [URIN] Stat Blood Culture x2 Reflex Set [OM.PC] Stat 06/28/20 02:55 CULTURE BLOOD [BC] Stat 06/28/20 03:27 CULTURE BLOOD [BC] Stat 06/28/20 03:55 CORONAVIRUS COVID-19 PCR PHL Stat 06/28/20 04:00 Sodium Chloride 0.9% [Normal Saline] 1,000 ml IV .BOLUS - Assessment/Plan Last 24 Hours: My Active Orders 06/28/20 02:50 UA RFX EZIO AND CULT IF INDIC [URIN] Stat Blood Culture x2 Reflex Set [OM.PC] Stat 06/28/20 02:55 CULTURE BLOOD [BC] Stat 06/28/20 03:27 CULTURE BLOOD [BC] Stat 06/28/20 03:55 CORONAVIRUS COVID-19 PCR PHL Stat 06/28/20 04:00 Sodium Chloride 0.9% [Normal Saline] 1,000 ml IV .BOLUS
[2020-06-28 03:06] VITALS: BP 119/82; PULSE 110
--- NOTE | 2020-06-28 03:32 | CR ---
PROCEDURE INFORMATION: Exam: XR Chest, 1 View Exam date and time: 06/28/2020 3:10 AM Age: 49 years old Clinical indication: Chest pain; Prior surgery; Surgery date: <1 month; Surgery type: Triple bypass per patient TECHNIQUE: Imaging protocol: XR of the chest Views: 1 view. COMPARISON: CT Chest wo Cont 06/06/2020 5:36 PM FINDINGS: Lungs: Unremarkable. No consolidation. Pleural space: Unremarkable. No pleural effusion. No pneumothorax. Heart/Mediastinum: Unremarkable. No cardiomegaly. Bones/joints: Unremarkable. IMPRESSION: 1. No acute findings. 2. Status post open heart surgery with sternal wires noted
[2020-06-28 03:33] LABS: ANION GAP 13.2 mEq/L (7-13); CHLORIDE,CL 103 mmol/L (98-107); SODIUM,NA 139 mmol/L (136-145)
[2020-06-28] MEDS ORDERED: Sodium Chloride 0.9% 1,000 ML IV ONE (04:00)
[2020-06-28] MEDS ORDERED: Acetaminophen 325 MG Tab PO ONE (04:08)
== END 2020-06-28 04:44 | disposition home or self-care (01) ==
LOC: DL.ED 02:32
DX: R50.9 Fever, unspecified (principal); R07.2 Precordial pain; M79.604 Pain in right leg; I10 Essential (primary) hypertension; Z95.1 Presence of aortocoronary bypass graft; Z79.82 Long term (current) use of aspirin; Z79.899 Other long term (current) drug therapy; Z79.02 Long term (current) use of antithrombotics/antiplatelets
CPT/HCPCS: 36415; 71045; 80053; 83605; 85025; 87040; 99285-25; A9270-GY; J7030; U0002

== ENCOUNTER 2020-08-09 11:30 | Emergency (ER) | payer MEDICAID ==
[2020-08-09] MEDS ORDERED: Sodium Chloride 0.9% 10 ML Syringe FLUSH PRN (11:32)
--- NOTE | 2020-08-09 11:32 | EDM.PDOC ---
ED HPI GENERAL MEDICAL PROBLEM - General Chief Complaint: Chest Pain Stated Complaint: INCOMING Time Seen by Provider: 08/09/20 11:31 Source of Information: Reports: Patient, EMS, Old Records, Provider (Herb Colón NP, [facility]), RN, RN Notes Reviewed History Limitations: Reports: No Limitations - History of Present Illness INITIAL COMMENTS - FREE TEXT/NARRATIVE: Pt arrives to ER by [facility] sent by Herb Colón NP from [facility] with report that pt has been experiencing chest pain and pressure for the past 2 days. Pt denies cough, fever, palpitations, orthopnea, or edema. He has been deer hunting and exerting himself more than usual. He was seen here 06/06/20 with chest pain and a Troponin >14, subsequently was transferred to [facility] where he had a 3 vessel CABG. Pt has taken all of his regular medications this morning, including Plavix. He was given Aspirin 325mg po x1 in clinic prior to transfer. Pt rates the pain 5/10 on arrival to ER. Nothing alleviates the pain. He has not tried Nitroglycerin today. Activity/exertion aggravates the pain. 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: Aspirin, Other Medication(s) - Related Data Allergies Allergy/AdvReac Type Severity Reaction Status Date / Time No Known Allergies Allergy Verified 06/28/20 02:47 Home Meds: Home Meds Aspirin [Aspirin EC] 81 mg PO DAILY 10/23/16 [History] PHENobarbitaL [PHENobarbital] 64.8 mg PO BID 10/23/16 [History] Phenytoin Sodium Extended [Dilantin] 100 mg PO BID 10/23/16 [History] Lisinopril 10 mg PO DAILY 12/09/16 [History] Clopidogrel Bisulfate [Clopidogrel] 75 mg PO DAILY 06/28/20 [History] Metoprolol Tartrate 25 mg PO DAILY 06/28/20 [History] Past Medical History - Past Health History Medical/Surgical History: Denies Medical/Surgical History HEENT History: Reports: None Cardiovascular History: Reports: CAD, High Cholesterol, Hypertension, [place] Respiratory History: Reports: None Gastrointestinal History: Reports: None Genitourinary History: Reports: None Musculoskeletal History: Reports: Back Pain, Chronic Neurological History: Reports: Seizure Psychiatric History: Reports: None Endocrine/Metabolic History: Reports: None Hematologic History: Reports: None Immunologic History: Reports: None Oncologic (Cancer) History: Reports: None Dermatologic History: Reports: None - Infectious Disease History Infectious Disease History: Reports: None - Past Surgical History Head Surgeries/Procedures: Reports: None Cardiovascular Surgical History: Reports: Coronary Artery Bypass Social & Family History - Family History Family Medical History: Noncontributory - Caffeine Use Caffeine Use: Reports: Coffee - Living Situation & Occupation Living situation: Reports: , with Family ED ROS GENERAL - Review of Systems Review Of Systems: Comprehensive ROS is negative, except as noted in HPI. ED EXAM, GENERAL - Physical Exam Exam: See Below Exam Limited By: No Limitations General Appearance: Alert, WD/WN, No Apparent Distress Eye Exam: Bilateral Eye: Normal Inspection Nose: Normal Inspection, No Blood Throat/Mouth: Normal Lips, Normal Voice, No Airway Compromise. No: Perioral Cyanosis Head: Atraumatic, Normocephalic Neck: Normal Inspection Respiratory/Chest: No Respiratory Distress, Lungs Clear, Normal Breath Sounds, No Accessory Muscle Use, Chest Non-Tender, Other (Midline scare from CABG). No: Crackles, Rales, Rhonchi, Wheezing, Stridor Cardiovascular: Normal Peripheral Pulses, Regular Rate, Rhythm, No Edema, No Gallop, No JVD, No Rub GI/Abdominal: Normal Bowel Sounds, Soft, Non-Tender, No Organomegaly, No Distention, No Abnormal Bruit, No Mass (Male) Exam: Deferred Rectal (Males) Exam: Deferred Back Exam: Normal Inspection, Full Range of Motion, NT Extremities: Normal Inspection, Normal Range of Motion, Non-Tender, Normal Capillary Refill, No Pedal Edema Neurological: Alert, Oriented, CN II-XII Intact, Normal Cognition, Normal Gait, No Motor/Sensory Deficits Psychiatric: Normal Affect, Normal Mood Skin Exam: Warm, Dry, Intact, Normal Color, No Rash EKG INTERPRETATION EKG Date: 08/09/20 Time: 11:36 Rhythm: Other (SR) Rate (Beats/Min): 72 [place]: Normal P-Wave: Present QRS: Other (RVH) ST-T: Normal QT: Normal Comparison: No Change EKG Interpretation Comments: Some motion artifact. Course - Vital Signs Last Recorded V/S: Last Vital Signs Temp 98.1 F 08/09/20 11:33 Pulse 72 08/09/20 11:33 Resp 18 08/09/20 11:33 BP 103/59 L 08/09/20 11:33 Pulse Ox 99 08/09/20 11:33 - Orders/Labs/Meds Orders: Active Orders 24 hr Category Date Time Status EKG 12 Lead [EKG Documentation Completion] [RC] STAT Care 08/09/20 11:32 Active Peripheral IV Care [RC] . DIRECTED Care 08/09/20 11:33 Active UA RFX EZIO AND CULT IF INDIC [URIN] Stat Lab 08/09/20 11:33 Ordered Heparin Sodium Med 08/09/20 12:47 Once 4,000 units IVPUSH .BOLUS ONE Nitroglycerin [Nitrostat] Med 08/09/20 11:37 Active 0.4 mg SL Q5M PRN Sodium Chloride 0.9% [Saline Flush] Med 08/09/20 11:32 Active 10 ml FLUSH ASDIRECTED PRN Peripheral IV Insertion Adult [OM.PC] Stat Oth 08/09/20 11:32 Ordered Medication Orders Nitroglycerin (Nitrostat) 0.4 mg SL Q5M PRN PRN Reason: Chest Pain Sodium Chloride (Saline Flush) 10 ml FLUSH ASDIRECTED PRN PRN Reason: Keep Vein Open Labs: Laboratory Tests 08/09/20 08/09/20 08/09/20 Range/Units 11:55 11:55 11:55 WBC 5.7 (5.0-10.0) 10^3/uL RBC 4.19 L (4.6-6.2) 10^6/uL Hgb 12.4 L D (14.0-18.0) g/dL Hct 37.9 L (40.0-54.0) % MCV 90.5 D (80-100) fL MCH 29.6 (27.0-34.0) pg MCHC 32.7 L (33.0-35.0) g/dL Plt Count 265 D (150-450) 10^3/uL Neut % (Auto) 57.0 (42.2-75.2) % Lymph % (Auto) 23.4 (20.5-50.1) % [place] % (Auto) 11.8 H (2-8) % Eos % (Auto) 6.9 H (1.0-3.0) % Baso % (Auto) 0.9 (0.0-1.0) % Add Manual Diff Yes Neutrophils % (Manual) 56 (42-75) % Band Neutrophils % 1 % Lymphocytes % (Manual) 26 (20-50) % Atypical Lymphs % 2 % Monocytes % (Manual) 10 H (2-8) % Eosinophils % (Manual) 5 H (1-3) % PT 10.7 (9.0-12.0) SEC INR 1.1 (0.9-1.2) APTT 25.6 (22.0-34.0) SEC Sodium 142 (136-145) mmol/L Potassium 4.1 (3.5-5.1) mmol/L Chloride 105 (98-107) mmol/L Carbon Dioxide 27 (21-32) mmol/L Anion Gap 14.1 H (7-13) mEq/L BUN 11 (7-18) mg/dL Creatinine 0.77 (0.70-1.30) mg/dL Est Cr Clr Drug Dosing TNP Estimated GFR (MDRD) > 60 BUN/Creatinine Ratio 14.3 (No establ ref range) Glucose 100 H (74-99) mg/dL Calcium 8.5 (8.5-10.1) mg/dL Total Bilirubin 0.2 (0.2-1.0) mg/dL AST 11 L (15-37) U/L ALT 21 (16-63) U/L Alkaline Phosphatase 107 (46-116) U/L Troponin I 0.075 H* (0.000-0.056) ng/mL B-Natriuretic Peptide 100 (0-100) pg/ml Total Protein 6.4 (6.4-8.2) g/dL Albumin 3.2 L (3.4-5.0) g/dL Globulin 3.2 Albumin/Globulin Ratio 1.00 Amylase 20 L (25-115) U/L Lipase 44 L (73-393) U/L Phenytoin (10-20 (Therapeutic)) ug/mL 08/09/20 Range/Units 11:55 WBC (5.0-10.0) 10^3/uL RBC (4.6-6.2) 10^6/uL Hgb (14.0-18.0) g/dL Hct (40.0-54.0) % MCV (80-100) fL MCH (27.0-34.0) pg MCHC (33.0-35.0) g/dL Plt Count (150-450) 10^3/uL Neut % (Auto) (42.2-75.2) % Lymph % (Auto) (20.5-50.1) % [place] % (Auto) (2-8) % Eos % (Auto) (1.0-3.0) % Baso % (Auto) (0.0-1.0) % Add Manual Diff Neutrophils % (Manual) (42-75) % Band Neutrophils % % Lymphocytes % (Manual) (20-50) % Atypical Lymphs % % Monocytes % (Manual) (2-8) % Eosinophils % (Manual) (1-3) % PT (9.0-12.0) SEC INR (0.9-1.2) APTT (22.0-34.0) SEC Sodium (136-145) mmol/L Potassium (3.5-5.1) mmol/L Chloride (98-107) mmol/L Carbon Dioxide (21-32) mmol/L Anion Gap (7-13) mEq/L BUN (7-18) mg/dL Creatinine (0.70-1.30) mg/dL Est Cr Clr Drug Dosing Estimated GFR (MDRD) BUN/Creatinine Ratio (No establ ref range) Glucose (74-99) mg/dL Calcium (8.5-10.1) mg/dL Total Bilirubin (0.2-1.0) mg/dL AST (15-37) U/L ALT (16-63) U/L Alkaline Phosphatase (46-116) U/L Troponin I (0.000-0.056) ng/mL B-Natriuretic Peptide (0-100) pg/ml Total Protein (6.4-8.2) g/dL Albumin (3.4-5.0) g/dL Globulin Albumin/Globulin Ratio Amylase (25-115) U/L Lipase (73-393) U/L Phenytoin 13 (10-20 (Therapeutic)) ug/mL Meds: Medications Generic Name Dose Route Start Last Admin Trade Name Freq PRN Reason Stop Dose Admin Nitroglycerin 0.4 mg 08/09/20 11:37 Nitrostat SL Q5M PRN Chest Pain Sodium Chloride 10 ml 08/09/20 11:32 Saline Flush FLUSH ASDIRECTED PRN Keep Vein Open - Radiology Interpretation Free Text/Narrative:: CXR: no acute process, see Rad. report. Departure - Departure Time of Disposition: 12:47 Disposition: DC/Tfer to Acute Hospital 02 Reason for Transfer *Q: Primary PCI Indicated Condition: Serious Clinical Impression: Non-ST elevated myocardial infarction (non-STEMI) Forms: ED Department Discharge, Interfacility Transfer [facility] Sepsis Event Note (ED) - Focused Exam Vital Signs: Vital Signs Temp Pulse Resp BP Pulse Ox 08/09/20 11:33 98.1 F 72 18 103/59 L 99 - My Orders Last 24 Hours: My Active Orders 08/09/20 11:32 EKG 12 Lead [EKG Documentation Completion] [RC] STAT Sodium Chloride 0.9% [Saline Flush] 10 ml FLUSH ASDIRECTED PRN Peripheral IV Insertion Adult [OM.PC] Stat 08/09/20 11:33 Peripheral IV Care [RC] . DIRECTED UA RFX EZIO AND CULT IF INDIC [URIN] Stat 08/09/20 11:37 Nitroglycerin [Nitrostat] 0.4 mg SL Q5M PRN 08/09/20 12:47 Heparin Sodium 4,000 units IVPUSH .BOLUS ONE - Assessment/Plan Last 24 Hours: My Active Orders 08/09/20 11:32 EKG 12 Lead [EKG Documentation Completion] [RC] STAT Sodium Chloride 0.9% [Saline Flush] 10 ml FLUSH ASDIRECTED PRN Peripheral IV Insertion Adult [OM.PC] Stat 08/09/20 11:33 Peripheral IV Care [RC] . DIRECTED UA RFX EZIO AND CULT IF INDIC [URIN] Stat 08/09/20 11:37 Nitroglycerin [Nitrostat] 0.4 mg SL Q5M PRN 08/09/20 12:47 Heparin Sodium 4,000 units IVPUSH .BOLUS ONE
[2020-08-09] MEDS ORDERED: Nitroglycerin 0.4 MG Tab.SL SL PRN (11:37)
[2020-08-09 12:25] LABS: ANION GAP 14.1 mEq/L (7-13); CHLORIDE,CL 105 mmol/L (98-107); SODIUM,NA 142 mmol/L (136-145)
[2020-08-09 12:30] LABS: PTT,PARTIAL THROMBOPLSTIN TIME 25.6 SEC (22.0-34.0)
[2020-08-09 12:35] VITALS: BP 103/59; PULSE 72
--- NOTE | 2020-08-09 12:41 | CR ---
EXAMINATION: Chest 1V Frontal SEX: Male AGE: 49 years CLINICAL HISTORY: 49-year-old male complaining of chest pain. Comparison exam 28 June 2020. INTERPRETATION: Negative. 1. Normal cardiac silhouette this patient with sternotomy wires and external hall monitor leads. 2. No new pulmonary vascular congestion, cephalization of flow, alveolar edema or dependent pleural effusion when compared directly to 28 June 2020 and 11 November 2018. 3. No lung mass or hilar lymphadenopathy. 4. No new infiltrates, atelectasis or lobar collapse. 5. No pneumothorax or pneumomediastinum. AP bony thorax unremarkable.
[2020-08-09] MEDS ORDERED: Heparin Sodium 5,000 Units/ML Vial IVPUSH ONE (12:47)
== END 2020-08-09 13:30 ==
LOC: DL.ED 11:30
DX: I21.4 Non-ST elevation (NSTEMI) myocardial infarction (principal); I25.10 Atherosclerotic heart disease of native coronary artery without angina pectoris; I10 Essential (primary) hypertension; I25.2 Old myocardial infarction; R56.9 Unspecified convulsions; Z79.82 Long term (current) use of aspirin; Z79.02 Long term (current) use of antithrombotics/antiplatelets; Z79.899 Other long term (current) drug therapy
CPT/HCPCS: 36415; 71045; 80053; 80185; 82150; 83690; 83880; 84484; 85025; 85610; 85730; 93005; 96374; 99285; J1644; 93010; 99284

== ENCOUNTER 2021-03-15 11:24 | Emergency (ER) | payer MEDICAID ==
--- NOTE | 2021-03-15 11:26 | EDM.PDOC ---
ED HPI GENERAL MEDICAL PROBLEM - General Chief Complaint: Cardiovascular Problem Stated Complaint: Chest pain/ambulance Time Seen by Provider: 03/15/21 11:25 Source of Information: Reports: Patient, Old Records, RN, RN Notes Reviewed History Limitations: Reports: No Limitations - History of Present Illness INITIAL COMMENTS - FREE TEXT/NARRATIVE: Pt arrives to ER from [facility] by ambulance with c/o productive cough with yellow/greenish sputum, middle back pain, and shortness of breath. Pt also c/o a sharp pain that radiates from the low back down the left thigh. The left leg pain is worse with coughing, and began a few days after the cough began one week ago. Pt denies fever, chills, N/V, or syncope. Hx of CAD, CABG x3 vessels. Has received both COVID vaccines. Onset: Gradual Duration: Week(s): (1), Constant Location: Reports: Chest, Back Quality: Reports: Ache Severity: Moderate Improves with: Reports: None Worsens with: Reports: Breathing, Other (Coughing) Left Leg Pain Score (Numeric/FACES): 3 - Related Data Allergies Allergy/AdvReac Type Severity Reaction Status Date / Time No Known Allergies Allergy Verified 03/15/21 11:26 Home Meds: Home Meds Aspirin [Aspirin EC] 81 mg PO DAILY 10/23/16 [History] PHENobarbitaL [PHENobarbital] 64.8 mg PO BID 10/23/16 [History] Phenytoin Sodium Extended [Dilantin] 100 mg PO BID 10/23/16 [History] Lisinopril 5 mg PO DAILY 12/09/16 [History] Clopidogrel Bisulfate [Clopidogrel] 75 mg PO DAILY 06/28/20 [History] Metoprolol Tartrate 50 mg PO DAILY 06/28/20 [History] Rosuvastatin Calcium 20 mg PO DAILY 03/15/21 [History] Past Medical History - Past Health History Medical/Surgical History: Denies Medical/Surgical History HEENT History: Reports: None Cardiovascular History: Reports: Angina, Bypass, CAD, High Cholesterol, Hypertension, [place] Respiratory History: Reports: None Gastrointestinal History: Reports: None Genitourinary History: Reports: None Musculoskeletal History: Reports: Back Pain, Chronic Neurological History: Reports: Seizure Psychiatric History: Reports: None Endocrine/Metabolic History: Reports: None Hematologic History: Reports: None Immunologic History: Reports: None Oncologic (Cancer) History: Reports: None Dermatologic History: Reports: None - Infectious Disease History Infectious Disease History: Reports: None - Past Surgical History Head Surgeries/Procedures: Reports: None Cardiovascular Surgical History: Reports: Coronary Artery Bypass Social & Family History - Family History Family Medical History: No Pertinent Family History - Caffeine Use Caffeine Use: Reports: Coffee - Living Situation & Occupation Living situation: Reports: , with Family ED ROS GENERAL - Review of Systems Review Of Systems: Comprehensive ROS is negative, except as noted in HPI. ED EXAM, GENERAL - Physical Exam Exam: See Below Exam Limited By: No Limitations General Appearance: Alert, WD/WN, No Apparent Distress Eye Exam: Bilateral Eye: Normal Inspection Nose: Normal Inspection, Normal Mucosa, No Blood Throat/Mouth: Normal Lips, Normal Voice, No Airway Compromise Head: Atraumatic, Normocephalic Neck: Normal Inspection, Supple, Non-Tender, Full Range of Motion Respiratory/Chest: No Respiratory Distress, No Accessory Muscle Use, Chest Non- Tender, Decreased Breath Sounds, Wheezing. No: Crackles, Rales, Rhonchi Cardiovascular: Regular Rate, Rhythm, No Edema GI/Abdominal: Normal Bowel Sounds, Soft, Non-Tender, No Organomegaly, No Distention, No Abnormal Bruit, No Mass Back Exam: Normal Inspection Extremities: Normal Inspection, Normal Range of Motion, Non-Tender, Normal Capillary Refill, No Pedal Edema Neurological: Alert, Oriented, CN II-XII Intact, Normal Cognition, Normal Gait, No Motor/Sensory Deficits Psychiatric: Normal Affect, Normal Mood Skin Exam: Warm, Dry, Intact, Normal Color, No Rash #1 Interpretation EKG Date: 03/15/21 Time: 11:24 Rhythm: Other (SR) Rate (Beats/Min): 60 [place]: Normal P-Wave: Present QRS: Other (RVH, old inferior Q waves, old lateral Q waves) ST-T: Normal QT: Normal Comparison: No Change Course - Vital Signs Last Recorded V/S: Last Vital Signs Temp 97.9 F 03/15/21 11:26 Pulse 61 03/15/21 11:42 Resp 20 03/15/21 11:26 BP 107/68 03/15/21 11:26 Pulse Ox 97 03/15/21 11:42 - Orders/Labs/Meds Orders: Active Orders 24 hr Category Date Time Status EKG 12 Lead [EKG Documentation Completion] [RC] STAT Care 03/15/21 11:27 Active Peripheral IV Care [RC] . DIRECTED Care 03/15/21 11:27 Active RT Aerosol Therapy [RC] ASDIRECTED Care 03/15/21 11:42 Active CBC WITH AUTO DIFF [HEME] Stat Lab 03/15/21 11:25 Results MANUAL DIFFERENTIAL QA/NC [HEME] Stat Lab 03/15/21 11:25 Results Sodium Chloride 0.9% [Saline Flush] Med 03/15/21 11:27 Active 10 ml FLUSH ASDIRECTED PRN Peripheral IV Insertion Adult [OM.PC] Stat Oth 03/15/21 11:27 Ordered Medication Orders Sodium Chloride (Sodium Chloride 0.9% 10 Ml Syringe) 10 ml FLUSH ASDIRECTED PRN PRN Reason: Keep Vein Open Last Admin: 03/15/21 12:04 Dose: 10 ml Documented by: [id number] Labs: Laboratory Tests 03/15/21 03/15/21 03/15/21 Range/Units 11:25 11:25 11:25 WBC 9.2 (5.0-10.0) 10^3/uL RBC 4.75 (4.6-6.2) 10^6/uL Hgb 14.9 D (14.0-18.0) g/dL Hct 45.0 (40.0-54.0) % MCV 94.7 D (80-100) fL MCH 31.4 (27.0-34.0) pg MCHC 33.1 (33.0-35.0) g/dL Plt Count 268 (150-450) 10^3/uL Neut % (Auto) 68.3 (42.2-75.2) % Lymph % (Auto) 13.7 L (20.5-50.1) % [place] % (Auto) 12.1 H (2-8) % Eos % (Auto) 5.5 H (1.0-3.0) % Baso % (Auto) 0.4 (0.0-1.0) % Add Manual Diff Yes PT 10.4 (9.0-12.0) SEC INR 1.0 (0.9-1.2) APTT 26.1 (22.0-34.0) SEC Sodium 140 (136-145) mmol/L Potassium 4.7 (3.5-5.1) mmol/L Chloride 104 (98-107) mmol/L Carbon Dioxide 28 (21-32) mmol/L Anion Gap 12.7 (7-13) mEq/L BUN 10 (7-18) mg/dL Creatinine 0.77 (0.70-1.30) mg/dL Est Cr Clr Drug Dosing 108.57 mL/min Estimated GFR (MDRD) > 60 BUN/Creatinine Ratio 13.0 (No establ ref range) Glucose 92 (70-99) mg/dL Lactic Acid (0.4-2.0) mmol/L Calcium 8.4 L (8.5-10.1) mg/dL Total Bilirubin 0.3 (0.2-1.0) mg/dL AST 7 L (15-37) U/L ALT 23 (16-63) U/L Alkaline Phosphatase 101 (46-116) U/L Troponin I < 0.017 (0.000-0.056) ng/mL C-Reactive Protein 3.4 H (0.0-0.9) mg/dL B-Natriuretic Peptide 62 (0-100) pg/ml Total Protein 6.9 (6.4-8.2) g/dL Albumin 3.5 (3.4-5.0) g/dL Globulin 3.4 Albumin/Globulin Ratio 1.0 Lipase 41 L (73-393) U/L Urine Opiates Screen (NEGATIVE) Ur Oxycodone Screen (NEGATIVE) Urine Methadone Screen (NEGATIVE) Ur Barbiturates Screen (NEGATIVE) U Tricyclic Antidepress (NEGATIVE) Ur Phencyclidine Scrn (NEGATIVE) Ur Amphetamine Screen (NEGATIVE) U Methamphetamines Scrn (NEGATIVE) Urine MDMA Screen (NEGATIVE) U Benzodiazepines Scrn (NEGATIVE) Urine Cocaine Screen (NEGATIVE) U Marijuana (THC) Screen (NEGATIVE) Ethyl Alcohol < 3 (0) mg/dL Influenza Type A RNA (NEGATIVE) Influenza Type B RNA (NEGATIVE) SARS-CoV-2 RNA (JACKIE) (NEGATIVE) 03/15/21 03/15/21 03/15/21 Range/Units 11:25 11:57 11:57 WBC (5.0-10.0) 10^3/uL RBC (4.6-6.2) 10^6/uL Hgb (14.0-18.0) g/dL Hct (40.0-54.0) % MCV (80-100) fL MCH (27.0-34.0) pg MCHC (33.0-35.0) g/dL Plt Count (150-450) 10^3/uL Neut % (Auto) (42.2-75.2) % Lymph % (Auto) (20.5-50.1) % [place] % (Auto) (2-8) % Eos % (Auto) (1.0-3.0) % Baso % (Auto) (0.0-1.0) % Add Manual Diff PT (9.0-12.0) SEC INR (0.9-1.2) APTT (22.0-34.0) SEC Sodium (136-145) mmol/L Potassium (3.5-5.1) mmol/L Chloride (98-107) mmol/L Carbon Dioxide (21-32) mmol/L Anion Gap (7-13) mEq/L BUN (7-18) mg/dL Creatinine (0.70-1.30) mg/dL Est Cr Clr Drug Dosing mL/min Estimated GFR (MDRD) BUN/Creatinine Ratio (No establ ref range) Glucose (70-99) mg/dL Lactic Acid 0.9 (0.4-2.0) mmol/L Calcium (8.5-10.1) mg/dL Total Bilirubin (0.2-1.0) mg/dL AST (15-37) U/L ALT (16-63) U/L Alkaline Phosphatase (46-116) U/L Troponin I (0.000-0.056) ng/mL C-Reactive Protein (0.0-0.9) mg/dL B-Natriuretic Peptide (0-100) pg/ml Total Protein (6.4-8.2) g/dL Albumin (3.4-5.0) g/dL Globulin Albumin/Globulin Ratio Lipase (73-393) U/L Urine Opiates Screen Negative (NEGATIVE) Ur Oxycodone Screen Negative (NEGATIVE) Urine Methadone Screen Negative (NEGATIVE) Ur Barbiturates Screen Positive H (NEGATIVE) U Tricyclic Antidepress Negative (NEGATIVE) Ur Phencyclidine Scrn Negative (NEGATIVE) Ur Amphetamine Screen Negative (NEGATIVE) U Methamphetamines Scrn Negative (NEGATIVE) Urine MDMA Screen Negative (NEGATIVE) U Benzodiazepines Scrn Negative (NEGATIVE) Urine Cocaine Screen Negative (NEGATIVE) U Marijuana (THC) Screen Negative (NEGATIVE) Ethyl Alcohol (0) mg/dL Influenza Type A RNA Negative (NEGATIVE) Influenza Type B RNA Negative (NEGATIVE) SARS-CoV-2 RNA (JACKIE) Negative (NEGATIVE) Meds: Medications Generic Name Dose Route Start Last Admin Trade Name Freq PRN Reason Stop Dose Admin Sodium Chloride 10 ml 03/15/21 11:27 03/15/21 12:04 Sodium Chloride 0.9% 10 Ml Syringe FLUSH 10 ml ASDIRECTED PRN Administration Keep Vein Open Discontinued Medications Generic Name Dose Route Start Last Admin Trade Name Freq PRN Reason Stop Dose Admin Albuterol/Ipratropium 3 ml 03/15/21 11:42 03/15/21 12:04 Albuterol/Ipratropium 3.0-0.5 Mg/3 Ml Neb Soln NEB 03/15/21 11:43 3 ml ONETIME ONE Administration Benzonatate 200 mg 03/15/21 11:42 03/15/21 12:04 Benzonatate 100 Mg Cap PO 03/15/21 11:43 200 mg ONETIME ONE Administration Methylprednisolone Sodium Succinate 125 mg 03/15/21 11:42 03/15/21 12:04 Methylprednisolone Sodium Succinate 125 Mg/2 Ml Sdv IVPUSH 03/15/21 11:43 125 mg ONETIME ONE Administration - Radiology Interpretation Free Text/Narrative:: XR Chest: sternotomy wires/evidence of prior chest surgery, no acute process per Rad. report. Departure - Departure Time of Disposition: 13:08 Disposition: Home, Self-Care 01 Condition: Good Clinical Impression: Bronchitis, Pleuritic chest pain, Lumbosacral radiculopathy Instructions: Acute Bronchitis, Adult, Pleurisy, [id number], Lumbosacral Radiculopathy Forms: ED Department Discharge Additional Instructions: Rx: Zithromax 500mg Rx: Tessalon Perles 200mg Rx: Prednisone 20mg *Take with a meal. Follow up in clinic in 2 to 3 days for recheck. Sepsis Event Note (ED) - Focused Exam Vital Signs: Vital Signs Temp Pulse Resp BP Pulse Ox Pulse Ox 03/15/21 11:42 61 97 03/15/21 11:26 97.9 F 62 20 107/68 97 - My Orders Last 24 Hours: My Active Orders 03/15/21 11:25 CBC WITH AUTO DIFF [HEME] Stat MANUAL DIFFERENTIAL QA/NC [HEME] Stat 03/15/21 11:27 EKG 12 Lead [EKG Documentation Completion] [RC] STAT Peripheral IV Care [RC] . DIRECTED Sodium Chloride 0.9% [Saline Flush] 10 ml FLUSH ASDIRECTED PRN Peripheral IV Insertion Adult [OM.PC] Stat 03/15/21 11:42 RT Aerosol Therapy [RC] ASDIRECTED - Assessment/Plan Last 24 Hours: My Active Orders 03/15/21 11:25 CBC WITH AUTO DIFF [HEME] Stat MANUAL DIFFERENTIAL QA/NC [HEME] Stat 03/15/21 11:27 EKG 12 Lead [EKG Documentation Completion] [RC] STAT Peripheral IV Care [RC] . DIRECTED Sodium Chloride 0.9% [Saline Flush] 10 ml FLUSH ASDIRECTED PRN Peripheral IV Insertion Adult [OM.PC] Stat 03/15/21 11:42 RT Aerosol Therapy [RC] ASDIRECTED
[2021-03-15] MEDS ORDERED: Sodium Chloride 0.9% 10 ML Syringe FLUSH PRN (11:27)
[2021-03-15 11:29] VITALS: BP 107/68
[2021-03-15] MEDS ORDERED: methylPREDNISolone Sodium Succinate 125 MG/2 ML SDV IVPUSH ONE (11:42)
[2021-03-15] MEDS ORDERED: Albuterol/Ipratropium 3.0-0.5 MG/3 ML Neb Soln NEB ONE (11:42)
[2021-03-15] MEDS ORDERED: Benzonatate 100 MG Cap PO ONE (11:42)
[2021-03-15 12:07] LABS: PTT,PARTIAL THROMBOPLSTIN TIME 26.1 SEC (22.0-34.0)
--- NOTE | 2021-03-15 12:07 | CR ---
EXAMINATION: Chest 1V Frontal SEX: Male AGE: 50 years CLINICAL HISTORY: 50-year-old male chest pain. Comparison CXR 28 June and 09 August 2020. Interpretation: Sternotomy wires. External property insurance agent leads. Cardiac silhouette within the upper limits of normal but chronic mild changes accentuation of the bronchovascular markings. No new signs of alveolar edema or dependent pleural effusion. No new lung mass, hilar lymphadenopathy or focal lobar consolidation. No atelectasis/collapse. No peripheral "groundglass" interstitial lung densities. No pneumothorax or pneumomediastinum. Midline tracheal bronchial airway unremarkable. CONCLUSION: Evidence of chest surgery. No acute new cardiopulmonary abnormality since comparison films.
[2021-03-15 12:09] VITALS: PULSE 61
[2021-03-15 12:12] LABS: ANION GAP 12.7 mEq/L (7-13); CHLORIDE,CL 104 mmol/L (98-107); SODIUM,NA 140 mmol/L (136-145)
[2021-03-15 12:49] LABS: CORONAVIRUS COVID-19 NAA NEGATIVE (NEGATIVE)
== END 2021-03-15 13:25 | disposition home or self-care (01) ==
LOC: DL.ED 11:24
DX: J40 Bronchitis, not specified as acute or chronic (principal); M54.16 Radiculopathy, lumbar region; I25.10 Atherosclerotic heart disease of native coronary artery without angina pectoris; E78.00 Pure hypercholesterolemia, unspecified; I10 Essential (primary) hypertension; I25.2 Old myocardial infarction; Z79.82 Long term (current) use of aspirin; Z79.02 Long term (current) use of antithrombotics/antiplatelets; Z79.899 Other long term (current) drug therapy; Z95.1 Presence of aortocoronary bypass graft; Z20.822 Contact with and (suspected) exposure to COVID-19
CPT/HCPCS: 0240U; 36415; 71045; 80053; 80305-QW; 80307; 83605; 83690; 83880; 84484; 85025; 85610; 85730; 86140; 93005; 94640; 96374; 99283; 99285-25; A9270-GY; J2930; J7620-GY

== ENCOUNTER 2021-10-11 10:05 | Emergency (ER) | payer MEDICAID ==
[2021-10-11] MEDS ORDERED: Sodium Chloride 0.9% 10 ML Syringe FLUSH PRN (10:15)
--- NOTE | 2021-10-11 10:15 | EDM.PDOC ---
ED HPI GENERAL MEDICAL PROBLEM - General Chief Complaint: Chest Pain Stated Complaint: AMBULANCE Time Seen by Provider: 10/11/21 10:15 Source of Information: Reports: Patient, EMS, Old Records, RN, RN Notes Reviewed History Limitations: Reports: No Limitations - History of Present Illness INITIAL COMMENTS - FREE TEXT/NARRATIVE: Pt arrives to ER from home by [facility] with c/o chest pain that began 2 days ago, and went away early this morning. Pt denies cough, orthopnea, edema, or palpitations. Denies radiating pain, fever, chills, N/V, or back pain. Admits to intermittent shortness of breath, but not currently. Pt is very anxious because he claims he had a 3 vessel bypass 9 months ago (although records indicate his CABG was in 2019). Currently pt is pain and symptoms free. Onset Date: 10/09/21 Duration: Resolved Prior to Arrival Location: Reports: Chest Quality: Reports: Ache Severity: Moderate Improves with: Reports: None Worsens with: Reports: None Associated Symptoms: Reports: No Other Symptoms Treatments MANAGER GLOBAL: Reports: Aspirin - Related Data Allergies Allergy/AdvReac Type Severity Reaction Status Date / Time No Known Allergies Allergy Verified 10/11/21 10:27 Home Meds: Home Meds Aspirin [Aspirin EC] 81 mg PO DAILY 10/23/16 [History] PHENobarbitaL [PHENobarbital] 64.8 mg PO BID 10/23/16 [History] Phenytoin Sodium Extended [Dilantin] 100 mg PO BID 10/23/16 [History] Lisinopril 5 mg PO DAILY 12/09/16 [History] Clopidogrel Bisulfate [Clopidogrel] 75 mg PO DAILY 06/28/20 [History] Metoprolol Tartrate 50 mg PO DAILY 06/28/20 [History] Rosuvastatin Calcium 20 mg PO DAILY 03/15/21 [History] Past Medical History - Past Health History Medical/Surgical History: Denies Medical/Surgical History HEENT History: Reports: None Cardiovascular History: Reports: Angina, Bypass, CAD, High Cholesterol, Hypertension, [place] Respiratory History: Reports: None Gastrointestinal History: Reports: None Genitourinary History: Reports: None Musculoskeletal History: Reports: Back Pain, Chronic Neurological History: Reports: Seizure Psychiatric History: Reports: None Endocrine/Metabolic History: Reports: None Hematologic History: Reports: None Immunologic History: Reports: None Oncologic (Cancer) History: Reports: None Dermatologic History: Reports: None - Infectious Disease History Infectious Disease History: Reports: None - Past Surgical History Head Surgeries/Procedures: Reports: None Cardiovascular Surgical History: Reports: Coronary Artery Bypass Social & Family History - Family History Family Medical History: No Pertinent Family History - Caffeine Use Caffeine Use: Reports: Coffee - Living Situation & Occupation Living situation: Reports: , with Family ED ROS GENERAL - Review of Systems Review Of Systems: Comprehensive ROS is negative, except as noted in HPI. ED EXAM, GENERAL - Physical Exam Exam: See Below Exam Limited By: No Limitations General Appearance: Alert, WD/WN, No Apparent Distress Throat/Mouth: Normal Lips, Normal Voice, No Airway Compromise Head: Atraumatic, Normocephalic Neck: Normal Inspection, Supple, Non-Tender, Full Range of Motion Respiratory/Chest: No Respiratory Distress, Lungs Clear, Normal Breath Sounds, No Accessory Muscle Use, Chest Non-Tender, Other (midline chest scar consistent with Hx of sternotomy) Cardiovascular: Normal Peripheral Pulses, Regular Rate, Rhythm, No Edema, No Gallop, No JVD, No Murmur, No Rub GI/Abdominal: Normal Bowel Sounds, Soft, Non-Tender Back Exam: Normal Inspection Extremities: Normal Inspection, Normal Range of Motion, Non-Tender, Normal Capillary Refill, No Pedal Edema Neurological: Alert, Oriented, CN II-XII Intact, Normal Cognition, No Motor/Sensory Deficits Psychiatric: Normal Affect, Normal Mood Skin Exam: Warm, Dry, Intact, Normal Color, No Rash #1 Interpretation EKG Date: 10/11/21 Time: 10:17 Rhythm: Other (SR) Rate (Beats/Min): 59 [place]: Normal P-Wave: Present QRS: Other (Old inferior Q waves, early transition in V2, tiny lateral Q waves) ST-T: Normal QT: Prolonged Comparison: No Change Course - Vital Signs Last Recorded V/S: Last Vital Signs Temp 98.1 F 10/11/21 10:23 Pulse 60 10/11/21 10:23 Resp 16 10/11/21 10:23 BP 114/74 10/11/21 10:23 Pulse Ox 96 10/11/21 10:23 - Orders/Labs/Meds Orders: Active Orders 24 hr Category Date Time Status Peripheral IV Care [RC] . DIRECTED Care 10/11/21 10:16 Active CORONAVIRUS COVID-19 JACKIE [MOLEC] Stat Lab 10/11/21 10:16 Ordered Sodium Chloride 0.9% [Saline Flush] Med 10/11/21 10:15 Active 10 ml FLUSH ASDIRECTED PRN Peripheral IV Insertion Adult [OM.PC] Stat Oth 10/11/21 10:16 Ordered Medication Orders Sodium Chloride (Sodium Chloride 0.9% 10 Ml Syringe) 10 ml FLUSH ASDIRECTED PRN PRN Reason: Keep Vein Open Labs: Laboratory Tests 10/11/21 10/11/21 10/11/21 Range/Units 10:24 10:24 10:24 WBC 7.0 (5.0-10.0) 10^3/uL RBC 4.54 L (4.6-6.2) 10^6/uL Hgb 14.6 (14.0-18.0) g/dL Hct 43.5 (40.0-54.0) % MCV 95.8 (80-100) fL MCH 32.2 (27.0-34.0) pg MCHC 33.6 (33.0-35.0) g/dL Plt Count 275 (150-450) 10^3/uL Neut % (Auto) 62.2 (42.2-75.2) % Lymph % (Auto) 18.5 L (20.5-50.1) % [place] % (Auto) 10.8 H (2-8) % Eos % (Auto) 7.8 H (1.0-3.0) % Baso % (Auto) 0.7 (0.0-1.0) % PT 10.6 (9.0-12.0) SEC INR 1.1 (0.9-1.2) APTT 25.5 (22.0-34.0) SEC Sodium 140 (136-145) mmol/L Potassium 4.1 (3.5-5.1) mmol/L Chloride 105 (98-107) mmol/L Carbon Dioxide 28 (21-32) mmol/L Anion Gap 11.1 (7-13) mEq/L BUN 12 (7-18) mg/dL Creatinine 0.72 (0.70-1.30) mg/dL Est Cr Clr Drug Dosing 130.23 mL/min Estimated GFR (MDRD) > 60 BUN/Creatinine Ratio 16.7 (No establ ref range) Glucose 96 (70-99) mg/dL Calcium 8.6 (8.5-10.1) mg/dL Total Bilirubin 0.2 (0.2-1.0) mg/dL AST 8 L (15-37) U/L ALT 15 L (16-63) U/L Alkaline Phosphatase 97 (46-116) U/L Troponin I High Sens 16 (<=76) pg/mL B-Natriuretic Peptide 72 (0-100) pg/ml Total Protein 6.6 (6.4-8.2) g/dL Albumin 3.6 (3.4-5.0) g/dL Globulin 3.0 Albumin/Globulin Ratio 1.2 Amylase 22 L (25-115) U/L Meds: Medications Generic Name Dose Route Start Last Admin Trade Name Freq PRN Reason Stop Dose Admin Sodium Chloride 10 ml 10/11/21 10:15 Sodium Chloride 0.9% 10 Ml Syringe FLUSH ASDIRECTED PRN Keep Vein Open - Radiology Interpretation Free Text/Narrative:: XR Chest: no acute process per Rad. report. Departure - Departure Time of Disposition: 11:16 Disposition: Home, Self-Care 01 Condition: Good Clinical Impression: Chest pain Qualifiers: Chest pain type: unspecified Qualified Code(s): R07.9 - Chest pain, unspecified Instructions: Nonspecific Chest Pain, Adult, [id number] Forms: ED Department Discharge Additional Instructions: Rx: Famotidine 20mg Follow up in clinic next week for recheck. Return to ER if chest pain returns. Sepsis Event Note (ED) - Focused Exam Vital Signs: Vital Signs Temp Pulse Resp BP Pulse Ox 10/11/21 10:23 98.1 F 60 16 114/74 96 - My Orders Last 24 Hours: My Active Orders 10/11/21 10:15 Sodium Chloride 0.9% [Saline Flush] 10 ml FLUSH ASDIRECTED PRN 10/11/21 10:16 Peripheral IV Care [RC] . DIRECTED CORONAVIRUS COVID-19 JACKIE [MOLEC] Stat Peripheral IV Insertion Adult [OM.PC] Stat - Assessment/Plan Last 24 Hours: My Active Orders 10/11/21 10:15 Sodium Chloride 0.9% [Saline Flush] 10 ml FLUSH ASDIRECTED PRN 10/11/21 10:16 Peripheral IV Care [RC] . DIRECTED CORONAVIRUS COVID-19 JACKIE [MOLEC] Stat Peripheral IV Insertion Adult [OM.PC] Stat
[2021-10-11 10:27] VITALS: BP 114/74; PULSE 60
[2021-10-11 10:50] LABS: ANION GAP 11.1 mEq/L (7-13); CHLORIDE,CL 105 mmol/L (98-107); SODIUM,NA 140 mmol/L (136-145)
[2021-10-11 10:55] LABS: PTT,PARTIAL THROMBOPLSTIN TIME 25.5 SEC (22.0-34.0)
--- NOTE | 2021-10-11 11:05 | CR ---
EXAMINATION: Chest 1V Frontal SEX: Male AGE: 51 years CLINICAL HISTORY: 51-year-old male with chest pain. Interpretation: No acute new cardiopulmonary abnormality since comparison exam a November 2018. Sternotomy wires and external air sampling and monitoring leads. Normal cardiac silhouette (size and configuration). No pulmonary vascular congestion, cephalization of flow, alveolar edema or dependent pleural effusion. No new lung mass, hilar lymphadenopathy or alveolar infiltrate. No peripheral "groundglass" interstitial lung densities. No pneumothorax or pneumomediastinum. Normal midline tracheal bronchial airway. CONCLUSION: Negative exam.
== END 2021-10-11 11:34 | disposition home or self-care (01) ==
LOC: DL.ED 10:05
DX: R07.9 Chest pain, unspecified (principal); I25.709 Atherosclerosis of coronary artery bypass graft(s), unspecified, with unspecified angina pectoris; E78.00 Pure hypercholesterolemia, unspecified; I10 Essential (primary) hypertension; I25.2 Old myocardial infarction; Z79.82 Long term (current) use of aspirin; Z79.02 Long term (current) use of antithrombotics/antiplatelets; Z79.899 Other long term (current) drug therapy
CPT/HCPCS: 36415; 71045; 80053; 82150; 83880; 84484; 85025; 85610; 85730; 93005; 99285-25

== ENCOUNTER 2022-01-18 11:51 | Emergency (ER) | payer MEDICAID ==
[2022-01-18] MEDS ORDERED: Sodium Chloride 0.9% 10 ML Syringe FLUSH PRN (12:24)
[2022-01-18 12:46] VITALS: BP 109/63; PULSE 63
[2022-01-18 13:09] LABS: ANION GAP 12.2 mEq/L (7-13); CHLORIDE,CL 104 mmol/L (98-107); SODIUM,NA 140 mmol/L (136-145)
[2022-01-18] MEDS ORDERED: GI Cocktail Oral Solution 30 ML PO ONE (13:10)
== END 2022-01-18 14:10 | disposition home or self-care (01) ==
LOC: DL.ED 11:51
DX: K21.9 Gastro-esophageal reflux disease without esophagitis (principal); I25.10 Atherosclerotic heart disease of native coronary artery without angina pectoris; E78.00 Pure hypercholesterolemia, unspecified; I10 Essential (primary) hypertension; I25.2 Old myocardial infarction; Z79.82 Long term (current) use of aspirin; Z79.02 Long term (current) use of antithrombotics/antiplatelets; Z79.899 Other long term (current) drug therapy
CPT/HCPCS: 36415; 71045; 80053; 83690; 83735; 83880; 84484; 85025; 86140; 93005; 99285; A9270